=== PATIENT | male | born 1955 ===

== ENCOUNTER 2017-02-25 19:02 | Emergency (ER) | payer MEDICAID ==
[2017-02-25 19:04] VITALS: BMI 31.9
--- NOTE | 2017-02-25 21:20 | C.PDOC ---
History Of Present Illness 61 year old male presents to the ED with complaints of abdominal pain and bloating that has worsened over the past few days. Patient states he was seen here last month for a possible PE and denies vomiting, diarrhea, chest pain, SOB , palpitations, visual changes, or any other complaints at this time. Time Seen by Provider: 02/25/17 21:19 Chief Complaint (Nursing): Dizziness/Lightheaded History Per: Patient History/Exam Limitations: no limitations Onset/Duration Of Symptoms: Days Current Symptoms Are (Timing): Still Present Activity At Onset Of Symptoms: Other Seizure Or Post-ictal Symptoms: None Fall Associated With With Symptoms: No Severity: Moderate Pain Scale Rating Of: 4 Recent travel outside of the [place]: No Additional History Per: Patient - Symptoms Of CVA Recent Aspirin Use: Unknown Current Coumadin Use?: No Recent Head Trauma: No Past Medical History Reviewed: Historical Data, Nursing Documentation, Vital Signs Vital Signs: Last Vital Signs Temp 98.3 F 02/25/17 19:05 Pulse 55 L 02/25/17 23:02 Resp 17 02/25/17 23:02 BP 121/80 02/25/17 23:02 Pulse Ox 99 02/25/17 23:37 - Medical History PMH: Arthritis, Asthma, Deep Vein Thrombosis (Left Leg), Gastritis, HTN, Hypercholesterolemia, Peripheral Edema, Pneumonia, Pulmonary Embolism, Sleep Apnea (USE CPAP) Surgical History: Endoscopy - [facility] Procedures INFLUENZA VACCINATION (12/05/14) OTHER ENDOSCOPY OF SM INTEST (08/06/15) PLICATION OF VENA CAVA (12/05/14) Family History: States: Unknown Family Hx - Social History Hx Tobacco Use: No Hx Alcohol Use: No Hx Substance Use: No - Immunization History Hx Tetanus Toxoid Vaccination: No Hx Influenza Vaccination: No Hx Pneumococcal Vaccination: No Review Of Systems Constitutional: Negative for: Fever, Chills Eyes: Negative for: Vision Change Cardiovascular: Negative for: Chest Pain, Palpitations Respiratory: Negative for: Shortness of Breath Gastrointestinal: Positive for: Abdominal Pain, Other (+Bloating). Negative for : Vomiting, Diarrhea Genitourinary: Negative for: Dysuria, Frequency Musculoskeletal: Negative for: Neck Pain, Back Pain Skin: Negative for: Rash, Lesions, Jaundice Neurological: Negative for: Weakness, Numbness Psych: Positive for: Anxiety Physical Exam - Physical Exam Appears: Non-toxic, Other (+MIld discomfort) Skin: Warm, Dry Head: Atraumatic, Normacephalic Eye(s): bilateral: Normal Inspection Oral Mucosa: Moist Neck: Supple Chest: Symmetrical, No Deformity Cardiovascular: Rhythm Regular, No Murmur Respiratory: No Accessory Muscle Use, No Rales, No Rhonchi, No Wheezing Gastrointestinal/Abdominal: Soft, No Tenderness, Distention, No Guarding, No Rebound, Other (+Tympanic to percussion) Extremity: Normal ROM, Pedal Edema (+Bilateral trace pedal edema), No Calf Tenderness, No Deformity Pulses: Left Dorsalis Pedis: Normal, Right Dorsalis Pedis: Normal Neurological/Psych: Oriented x3, Normal Speech, Normal Cognition ED Course And Treatment - Laboratory Results Result Diagrams: 02/25/17 21:32 02/25/17 21:32 ECG: Interpreted By Me, Viewed By Me ECG Rhythm: Sinus Rhythm (82), Nonspecific Changes O2 Sat by Pulse Oximetry: 99 (Room air) Pulse Ox Interpretation: Normal - Radiology CXR Interpretation: Yes: Other (unchanged from 01/13/17). No: Infiltrates, Fracture, Pnemothorax - Other Rad obstr X-Ray: Interpreted by Me, Viewed By Me Interpretation: lots of stool and gas, no obstr Progress Note: CXR, EKG, Blood work, and Urinalysis ordered and reviewed. Reevaluation Time: 23:53 Reassessment Condition: Improved Medical Decision Making Medical Decision Making: Upon provider reevaluation patient is feeling better, is medically stable, and requires no further treatment in the ED at this time. Patient will be discharged home with Rx for miralax . Counseling was provided and all questions were answered regarding diagnosis and need for follow up with Dr Jessica. There is agreement to discharge plan. Return if symptoms persist or worsen. Disposition Counseled Patient/Family Regarding: Studies Performed, Diagnosis, Need For Followup, Rx Given - Disposition Referrals: Hoa Jessica MD [Staff Provider] - Disposition: HOME/ ROUTINE Disposition Time: 21:20 Condition: FAIR Additional Instructions: Please return if symptoms recur Prescriptions: Polyethylene Glycol 3350 [Miralax] 17 gm PO DAILY #270 ml Instructions: Abdominal Pain (ED), Gas and Bloating (ED), Constipation (DC) - Clinical Impression Clinical Impression: Abdominal pain, Constipation - Scribe Statement The provider has reviewed the documentation as recorded by the Scribe Jourdan Kingsley. Provider Attestation: All medical record entries made by the Scribe were at my direction and personally dictated by me. I have reviewed the chart and agree that the record accurately reflects my personal performance of the history, physical exam, medical decision making, and the department course for this patient. I have also personally directed, reviewed, and agree with the discharge instructions and disposition.
[2017-02-25 21:38] LABS: BASO # 0.1 K/uL (0.0-0.2); BASO % 0.7 % (0.0-2.0); EOS # 1.8 K/uL (0.0-0.7); EOS % 23.7 % (0.0-4.0); HEMATOCRIT 35.7 % (35.0-51.0); LYMPH # 2.4 K/uL (1.0-4.3); LYMPH % 31.3 % (20.0-40.0); MEAN CORPUSCULAR HEMOGLOBIN 29.7 pg (27.0-31.0); MEAN CORPUSCULAR HGB CONC 33.5 g/dL (33.0-37.0); MEAN PLATELET VOLUME 8.6 fL (7.2-11.7); MONO # 0.6 K/uL (0.0-0.8); NRBC % 0.1 % (0.0-2.0); PLATELET COUNT 201 K/uL (130-400); RED CELL DISTRIBUTION WIDTH 13.1 % (11.5-14.5); WHITE BLOOD COUNT 7.7 K/uL (4.8-10.8)
[2017-02-25 21:45] LABS: MEAN CELL VOLUME 88.6 fL (80.0-94.0)
[2017-02-25 21:46] LABS: CHLORIDE 104 mmol/L (98-107); POTASSIUM 4.2 mmol/L (3.6-5.2); SODIUM 141 mmol/L (132-148)
[2017-02-25 21:48] LABS: AST/SGOT 24 U/L (17-59); BILIRUBIN,TOTAL 0.3 mg/dL (0.2-1.3); CARBON DIOXIDE 26 mmol/L (22-30); GFR AFRICAN-AMERICAN > 60
[2017-02-25 21:49] LABS: ALB/GLOB RATIO 1.2 (1.0-2.1); ALKALINE PHOSPHATASE 65 U/L (38-126); ALT/SGPT 29 U/L (21-72); BLOOD UREA NITROGEN 15 mg/dL (9-20); CALCIUM 8.5 mg/dl (8.6-10.4); GLUCOSE,RANDOM 110 mg/dL (75-110); RBC URINE 2 /hpf (0-3); TOTAL PROTEIN 7.2 g/dL (6.3-8.3); URINE BILIRUBIN NEGATIVE (NEGATIVE); URINE BLOOD 1+ (NEGATIVE); URINE COLOR Straw (YELLOW); URINE GLUCOSE (UA) NORMAL (Normal); URINE KETONE NEGATIVE (NEGATIVE); URINE LEUKOCYTE ESTERASE NEG Leu/uL (Negative); URINE PROTEIN NEGATIVE (NEGATIVE); URINE UROBILINOGEN NORMAL mg/dL (0.2-1.0); WBC URINE 1 /hpf (0-5)
[2017-02-25 21:56] LABS: BASOPHIL 1 % (0-2); EOSINOPHIL 30 % (0-4); NEUTROPHIL 31 % (50-75); TOTAL CELLS COUNTED 100
[2017-02-26 00:10] VITALS: BP 124/82; PULSE 61; RESP 19; TEMP 98.4; O2SAT 100
--- NOTE | 2017-02-26 10:04 | RAD ---
PROCEDURE: CHEST RADIOGRAPH, 1 VIEW HISTORY: chest pain COMPARISON: None available. FINDINGS: LUNGS: Mild bibasilar atelectasis right greater than left PLEURA: No pneumothorax or pleural fluid seen. CARDIOVASCULAR: Right aortic arch. Cardiomegaly. OSSEOUS STRUCTURES: No significant abnormalities. VISUALIZED UPPER ABDOMEN: Normal. OTHER FINDINGS: None. IMPRESSION: Mild bibasilar atelectasis right greater than left. Right aortic arch.
--- NOTE | 2017-02-26 11:00 | RAD ---
HISTORY: abd pain COMPARISON: 10/02/2014 FINDINGS: BOWEL: No evidence of acute mechanical bowel obstruction. Large amount of stool seen within the at ascending and proximal transverse colon suggesting mild fecal retention/ constipation. No free air. BONES: Multilevel degenerative spondylosis of the thoracic and lumbar spine OTHER FINDINGS: In situ IVC filter cardiomegaly. Mild left basilar atelectasis. Elevation right hemidiaphragm possibly due to eventration IMPRESSION: Findings suggest constipation. No evidence of obstruction
--- NOTE | 2017-02-28 11:56 | CARD ---
APPROVED REPORT EKG Measurement Heart [id number] <Conclusion> Normal sinus rhythm Normal ECG
== END 2017-02-26 00:18 | disposition home or self-care (01) ==
LOC: C.ER 19:02
DX: K59.00 Constipation, unspecified (principal)
CPT/HCPCS: 71010; 74020; 80053; 81001; 83690; 83880; 84484; 85025; 85610; 85730; 86850; 86900; 93005; 96374; 99285; J2270

== ENCOUNTER 2017-03-18 10:42 | Inpatient (IN) | payer MEDICARE, MEDICAID ==
[2017-03-18 10:58] VITALS: BMI 32.3
--- NOTE | 2017-03-18 11:40 | C.PDOC ---
History Of Present Illness 61 y/o male, with history of DVT and PE, presents to ED with complaint of abdominal pain for 1 week. Denies fever, chills, nausea, vomiting, or diarrhea. Patient also seen by jig maker 1 week ago and was told to stop taking his Coumadin, as he did not need it anymore. Patient reports history of DVT in left leg, but reports increasing swelling and pain in bilateral legs since stopping Coumadin. He notes chest pain only when he coughs. Denies shortness of breath. Time Seen by Provider: 03/18/17 11:14 Chief Complaint (Nursing): Abdominal Pain History Per: Patient History/Exam Limitations: no limitations Onset/Duration Of Symptoms: Days Current Symptoms Are (Timing): Still Present Location Of Pain/Discomfort: RLQ Radiation Of Pain To:: None Associated Symptoms: denies: Fever, Chills, Nausea, Vomiting, Diarrhea Recent travel outside of the [place]: No Past Medical History Reviewed: Historical Data, Nursing Documentation, Vital Signs Vital Signs: Last Vital Signs Temp 97.4 F L 03/18/17 10:57 Pulse 81 03/18/17 10:57 Resp 18 03/18/17 10:57 BP 133/86 03/18/17 10:57 Pulse Ox 98 03/18/17 19:16 - Medical History PMH: Arthritis, Asthma, Deep Vein Thrombosis (Left Leg), Gastritis, HTN, Hypercholesterolemia, Peripheral Edema, Pneumonia, Pulmonary Embolism, Sleep Apnea (USE CPAP) Surgical History: Endoscopy - [facility] Procedures INFLUENZA VACCINATION (12/05/14) OTHER ENDOSCOPY OF SM INTEST (08/06/15) PLICATION OF VENA CAVA (12/05/14) Family History: States: Unknown Family Hx - Social History Hx Tobacco Use: No Hx Alcohol Use: No Hx Substance Use: No - Immunization History Hx Tetanus Toxoid Vaccination: No Hx Influenza Vaccination: No Hx Pneumococcal Vaccination: No Review Of Systems Except As Marked, All Systems Reviewed And Found Negative. Constitutional: Negative for: Fever, Chills Cardiovascular: Negative for: Chest Pain Respiratory: Positive for: Cough. Negative for: Shortness of Breath, Wheezing Gastrointestinal: Positive for: Abdominal Pain. Negative for: Nausea, Vomiting , Diarrhea Musculoskeletal: Positive for: Leg Pain (bilateral, with increased swelling) Skin: Negative for: Rash Neurological: Negative for: Weakness, Numbness, Headache Physical Exam - Physical Exam Appears: Non-toxic, No Acute Distress Skin: Warm, Dry Head: Atraumatic, Normacephalic Chest: Symmetrical Cardiovascular: Rhythm Regular Respiratory: Decreased Breath Sounds (slight, right base), No Rales, No Rhonchi , No Wheezing Gastrointestinal/Abdominal: Bowel Sounds (normal), Soft, Tenderness (diffuse, worse in RLQ, with (+) voluntary guarding), No Guarding Back: Normal Inspection Extremity: Normal ROM, Capillary Refill (< 2 sec. ) Neurological/Psych: Oriented x3, Normal Speech, Normal Cognition ED Course And Treatment - Laboratory Results Result Diagrams: 03/18/17 12:28 03/18/17 12:28 ECG: Interpreted By Me, Viewed By Me ECG Rhythm: Sinus Rhythm ECG Interpretation: Normal O2 Sat by Pulse Oximetry: 98 (RA) Pulse Ox Interpretation: Normal - CT Scan/US CT Abdomen/Pelvis Other Rad Studies (CT/US): Read By Radiologist, Radiology Report Reviewed CT/US Interpretation: FINDINGS: LOWER THORAX: Unremarkable. LIVER: Unremarkable. No gross lesion or ductal dilatation. GALLBLADDER AND BILE DUCTS : Unremarkable. PANCREAS: Unremarkable. No gross lesion or ductal dilatation. SPLEEN: Unremarkable. ADRENALS: Unremarkable. No mass. KIDNEYS AND URETERS: Unremarkable. No hydronephrosis. No solid mass. VASCULATURE: IVC filter seen in place. The abdominal aorta is normal in caliber and shape. BOWEL: Unremarkable. No obstruction. No gross mural thickening. Few scattered diverticulosis are seen without evidence of diverticulitis. APPENDIX: Normal appendix. PERITONEUM: Unremarkable. No free fluid. No free air. LYMPH NODES: Unremarkable. No enlarged lymph nodes. BLADDER: The urinary bladder is mildly to moderately distended. REPRODUCTIVE: Moderately enlarged prostate. BONES: No acute fracture. OTHER FINDINGS: None. IMPRESSION: No evidence of acute pathology in the abdomen and pelvis. No evidence of significant interval change since the previous exam. Mildly to moderately distended urinary bladder. Moderately enlarged prostate. CT Angio Chest Other Rad Studies (CT/US): Read By Radiologist, Radiology Report Reviewed CT/US Interpretation: FINDINGS: PULMONARY ARTERIES: Re- demonstration of small eccentric filling defects in the bilateral lower lobe pulmonary arteries not significantly changed since the previous exam. 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 No evidence of central pulmonary embolus. The main pulmonary artery is mildly enlarged. AORTA: 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 No significant interval change in the thoracic aorta since the previous exam. LUNGS: No significant interval change in the lungs noted since the previous exam. No evidence of pneumonia or suspicious mass. PLEURAL SPACES: Unremarkable. No effusion or pneuomothorax. HEART: The heart is mildly enlarged. LYMPH NODES: No lymphadenopathy. BONES, CHEST WALL: Unremarkable. No fracture or destructive lesion. OTHER FINDINGS: Unremarkable. IMPRESSION: Re- demonstration of tiny eccentric filling defects at the pulmonary arteries of the lower lobes suggestive of chronic/organized pulmonary emboli. . No evidence of acute pulmonary embolus. No evidence of significant interval change since the previous exam. Re- demonstration of right-sided aortic arch and mild aneurysmal changes in the thoracic aorta. Mild cardiomegaly. Mildly enlarged main pulmonary artery. Medical Decision Making Medical Decision Making: Plan: * CT scan chest and abdomen, evaluate for DVT * Reassess Progress: diuscussed with Dr Ruelas, recommends pt be put back on blood thinners. pt now complaining of chest pain, ekg done and trop prdered. Disposition Discussed With .: Emily Dickson Doctor Will See Patient In The: Hospital - Disposition Disposition: HOSPITALIZED Disposition Time: 19:16 Condition: STABLE - Clinical Impression Clinical Impression: Pulmonary embolism, Chest pain - PA / STONECUTTER ASSISTANT / Resident Statement MD/DO has reviewed & agrees with the documentation as recorded. - Scribe Statement The provider has reviewed the documentation as recorded by the Albino Augustine Provider Scribe Attestation: All medical record entries made by the Albino were at my direction and personally dictated by me. I have reviewed the chart and agree that the record accurately reflects my personal performance of the history, physical exam, medical decision making, and the department course for this patient. I have also personally directed, reviewed, and agree with the discharge instructions and disposition.
[2017-03-18] MEDS ORDERED: Iohexol 240 (50 ml) PO STA (12:15)
[2017-03-18] MEDS ORDERED: Sodium Chloride 0.9% 1,000 ML IV ONE (12:15)
[2017-03-18] MEDS ORDERED: Iohexol 240 (50 ml) ONE (12:31)
[2017-03-18] MEDS ORDERED: Sodium Chloride 0.9% 1,000 ML ONE (12:31)
[2017-03-18 12:44] LABS: BASO % 0.6 % (0.0-2.0); EOS # 0.2 K/uL (0.0-0.7); EOS % 4.8 % (0.0-4.0); HEMATOCRIT 37.3 % (35.0-51.0); LYMPH # 0.6 K/uL (1.0-4.3); LYMPH % 12.2 % (20.0-40.0); MEAN CELL VOLUME 87.8 fL (80.0-94.0); MEAN CORPUSCULAR HEMOGLOBIN 29.5 pg (27.0-31.0); MEAN CORPUSCULAR HGB CONC 33.6 g/dL (33.0-37.0); MEAN PLATELET VOLUME 8.2 fL (7.2-11.7); MONO # 0.1 K/uL (0.0-0.8); MONO % 1.8 % (0.0-10.0); NRBC % 0.1 % (0.0-2.0); WHITE BLOOD COUNT 4.6 K/uL (4.8-10.8)
[2017-03-18 12:52] LABS: CHLORIDE 101 mmol/L (98-107); SODIUM 136 mmol/L (132-148)
[2017-03-18 12:53] LABS: POTASSIUM 4.5 mmol/L (3.6-5.2)
[2017-03-18 12:55] LABS: ALB/GLOB RATIO 1.3 (1.0-2.1); ALKALINE PHOSPHATASE 78 U/L (38-126); ALT/SGPT 38 U/L (21-72); AST/SGOT 24 U/L (17-59); BILIRUBIN,TOTAL 0.2 mg/dL (0.2-1.3); BLOOD UREA NITROGEN 16 mg/dL (9-20); CARBON DIOXIDE 28 mmol/L (22-30); GFR AFRICAN-AMERICAN > 60; GLUCOSE,RANDOM 96 mg/dL (75-110); TOTAL PROTEIN 8.2 g/dL (6.3-8.3)
[2017-03-18 12:56] LABS: CALCIUM 9.2 mg/dl (8.6-10.4)
[2017-03-18 13:00] LABS: RBC URINE < 1 /hpf (0-3); URINE BILIRUBIN NEGATIVE (NEGATIVE); URINE BLOOD NEGATIVE (NEGATIVE); URINE COLOR Straw (YELLOW); URINE GLUCOSE (UA) NORMAL (Normal); URINE KETONE NEGATIVE (NEGATIVE); URINE LEUKOCYTE ESTERASE NEG Leu/uL (Negative); URINE PROTEIN NEGATIVE (NEGATIVE); URINE UROBILINOGEN NORMAL mg/dL (0.2-1.0); WBC URINE < 1 /hpf (0-5)
[2017-03-18] MEDS ORDERED: Iodixanol 320 mg/ml 150 ml Bottle IV ONE (13:30)
--- NOTE | 2017-03-18 14:51 | CT ---
PROCEDURE: CT Chest with contrast (Pulmonary Angiogram) HISTORY: leg pain, sob, hx dvt and pe COMPARISON: Comparison is made to the previous study dated 01/13/2017. TECHNIQUE: Axial computed tomography images were obtained of the chest in the pulmonary arterial phase of enhancement. Coronal and sagittal reformatted images were created and reviewed. Intravenous contrast dose: 100 mL of Visipaque Radiation dose: Total exam DLP = 523.9 mGy-cm. This CT exam was performed using one or more of the following dose reduction techniques: Automated exposure control, adjustment of the mA and/or kV according to patient size, and/or use of iterative reconstruction technique. FINDINGS: PULMONARY ARTERIES: Re- demonstration of small eccentric filling defects in the bilateral lower lobe pulmonary arteries not significantly changed since the previous exam. 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 No evidence of central pulmonary embolus. The main pulmonary artery is mildly enlarged. AORTA: 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 No significant interval change in the thoracic aorta since the previous exam. LUNGS: No significant interval change in the lungs noted since the previous exam. No evidence of pneumonia or suspicious mass. PLEURAL SPACES: Unremarkable. No effusion or pneuomothorax. HEART: The heart is mildly enlarged. LYMPH NODES: No lymphadenopathy. BONES, CHEST WALL: Unremarkable. No fracture or destructive lesion OTHER FINDINGS: Unremarkable. IMPRESSION: Re- demonstration of tiny eccentric filling defects at the pulmonary arteries of the lower lobes suggestive of chronic/organized pulmonary emboli. . No evidence of acute pulmonary embolus. No evidence of significant interval change since the previous exam. Re- demonstration of right-sided aortic arch and mild aneurysmal changes in the thoracic aorta. Mild cardiomegaly. Mildly enlarged main pulmonary artery.
--- NOTE | 2017-03-18 15:05 | CT ---
PROCEDURE: CT Abdomen and Pelvis with contrast HISTORY: abd pain COMPARISON: Comparison is made to the previous study dated 01/14/2017. TECHNIQUE: Contrast dose: 100 mL Visipaque intravenously. The patient had CTA of the chest was obtained concurrently and reported separately using the same dose of IV contrast. Radiation dose: Total exam DLP = 887.43 mGy-cm. This CT exam was performed using one or more of the following dose reduction techniques: Automated exposure control, adjustment of the mA and/or kV according to patient size, and/or use of iterative reconstruction technique. FINDINGS: LOWER THORAX: Unremarkable. LIVER: Unremarkable. No gross lesion or ductal dilatation. GALLBLADDER AND BILE DUCTS: Unremarkable. PANCREAS: Unremarkable. No gross lesion or ductal dilatation. SPLEEN: Unremarkable. ADRENALS: Unremarkable. No mass. KIDNEYS AND URETERS: Unremarkable. No hydronephrosis. No solid mass. VASCULATURE: IVC filter seen in place. The abdominal aorta is normal in caliber and shape. BOWEL: Unremarkable. No obstruction. No gross mural thickening. Few scattered diverticulosis are seen without evidence of diverticulitis. APPENDIX: Normal appendix. PERITONEUM: Unremarkable. No free fluid. No free air. LYMPH NODES: Unremarkable. No enlarged lymph nodes. BLADDER: The urinary bladder is mildly to moderately distended. REPRODUCTIVE: Moderately enlarged prostate. BONES: No acute fracture. OTHER FINDINGS: None. IMPRESSION: No evidence of acute pathology in the abdomen and pelvis. No evidence of significant interval change since the previous exam. Mildly to moderately distended urinary bladder. Moderately enlarged prostate.
[2017-03-18] MEDS ORDERED: Enoxaparin 80 mg Syringe SC STA (18:06)
[2017-03-18] MEDS ORDERED: Enoxaparin 30 mg Syringe ONE (18:50)
[2017-03-18] MEDS ORDERED: Enoxaparin 60 mg Syringe ONE (18:51)
[2017-03-18] MEDS ORDERED: Heparin25000 units/250ml 1/2NS 25,000 UNITS/250 ML BAG IV ONE (19:09)
[2017-03-18 19:29] LABS: INR 1.1
[2017-03-18] MEDS ORDERED: Albuterol-Ipratrop 3 mg / 0.5 (3 ml) UD INH PRN (22:15)
--- NOTE | 2017-03-18 22:19 | CP.PCM.HP ---
History of Present Illness - History of Present Illness History of Present Illness: 61-year-old male patient with past medical history of DVT, PE, hypertension, hypercholesterolemia, peripheral edema, pneumonia, sleep apnea, presented to the ED with complaint of abdominal pain for 1 week. Patient also seen by furniture stainer for pneumococcal and was told to stop taking his Coumadin, as he did not need it anymore. Patient reports history of DVT in the left leg, but reports increasing swelling and pain in bilateral legs since stopping Coumadin. Patient notes chest pain only when he coughs. Denies shortness of breath, fever, chills, nausea, vomiting, diarrhea. Present on Admission - Present on Admission Any Indicators Present on Admission: No Past Patient History - Infectious Disease Hx of Infectious Diseases: None - Past Medical History & Family History Past Medical History?: Yes - Past Social History Smoking Status: Never Smoked - CARDIAC Hx Hypercholesterolemia: Yes Hx Hypertension: Yes Hx Peripheral Edema: Yes - PULMONARY Hx Asthma: Yes Hx Pneumonia: Yes Hx Pulmonary Embolism: Yes Hx Sleep Apnea: Yes (USE CPAP) - NEUROLOGICAL Hx Neurological Disorder: No - HEENT Hx HEENT Problems: No - RENAL Hx Chronic Kidney Disease: No - ENDOCRINE/METABOLIC Hx Endocrine Disorders: No - HEMATOLOGICAL/ONCOLOGICAL Hx Blood Disorders: Yes Other/Comment: 'blood clots in leg and lungs' - INTEGUMENTARY Hx Dermatological Problems: No - MUSCULOSKELETAL/RHEUMATOLOGICAL Hx Arthritis: Yes - GASTROINTESTINAL Hx Gastritis: Yes - GENITOURINARY/GYNECOLOGICAL Hx Genitourinary Disorders: No - PSYCHIATRIC Hx Substance Use: No - SURGICAL HISTORY Hx Surgeries: Yes - ANESTHESIA Hx Anesthesia: Yes Hx Anesthesia Reactions: No Hx Malignant Hyperthermia: No Meds Allergies/Adverse Reactions: Allergies Allergy/AdvReac Type Severity Reaction Status Date / Time Penicillins Allergy RASH Verified 03/18/17 10:56 Results - Vital Signs Recent Vital Signs: Last Vital Signs Temp 97.4 F L 03/18/17 10:57 Pulse 85 03/18/17 20:35 Resp 18 03/18/17 20:35 BP 131/93 H 03/18/17 20:35 Pulse Ox 98 03/18/17 20:35 - Labs Result Diagrams: 03/21/17 10:56 03/21/17 10:56 Labs: Laboratory Results - last 24 hr 03/18/17 03/18/17 19:17 19:17 PT 12.6 H INR 1.1 APTT 26 Troponin I < 0.0120 Assessment & Plan (1) Abdominal pain Status: Acute (2) Asthma Status: Acute (3) Asthma exacerbation Status: Acute (4) Bronchitis Status: Acute (5) Chest pain Status: Acute (6) Chest pain Status: Acute (7) Constipation Status: Acute (8) Dyspnea Status: Acute (9) H/O gastritis Status: Acute (10) History of DVT of lower extremity Status: Acute (11) History of pulmonary embolism Status: Acute (12) Leukocytosis Status: Acute (13) Pneumonia Status: Acute (14) Prophylactic measure Status: Acute (15) Pulmonary embolism Status: Acute (16) Reactive airway disease with wheezing Status: Acute (17) S/P IVC filter Status: Acute (18) SOB (shortness of breath) Status: Acute (19) Transaminitis Status: Acute (20) Transient visual loss of both eyes Status: Acute (21) Aortic aneurysm Status: Chronic (22) DVT (deep venous thrombosis) Status: Chronic (23) GERD (gastroesophageal reflux disease) Status: Chronic (24) Gastritis Status: Chronic (25) HTN (hypertension) Status: Chronic (26) History of DVT (deep vein thrombosis) Status: Chronic (27) Pulmonary embolism Status: Chronic (28) IVC thrombosis Status: Suspected - Assessment and Plan (Free Text) Plan: duoneb coumadin heparin pulalton protnix adn home med [id number]
[2017-03-19] MEDS: Pantoprazole 40 mg EC Tab PO SCH (09:45)
[2017-03-19] MEDS ORDERED: Albuterol-Ipratrop 20 mcg/actuation (4 g) IH SCH ×2 (10:00→20:00)
[2017-03-19] MEDS ORDERED: Albuterol HFA 90 mcg/actuation (8 g) IH SCH ×3 (10:00→20:00)
[2017-03-19] MEDS: POLYETHYLENE GLYCOL 3350 17 GM/Dose PACKET PO SCH (10:54)
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
--- NOTE | 2017-03-19 14:46 | CP.PCM.PN ---
Subjective - Date & Time of Evaluation Date of Evaluation: 03/19/17 Time of Evaluation: 13:40 - Subjective Subjective: clinically same Objective - Vital Signs/Intake and Output Vital Signs (last 24 hours): Temp Pulse Resp BP Pulse Ox 98.0 F 72 18 119/79 97 03/19/17 07:23 03/19/17 07:30 03/19/17 07:23 03/19/17 07:23 03/19/17 07:23 Intake and Output: 03/19/17 03/19/17 06:59 18:59 Intake Total 225.6 Balance 225.6 - Medications Medications: Current Medications Albuterol (Ventolin Hfa 90 Mcg/Actuation (8 G)) 2 puff IH BID [facility] Last Admin: 03/19/17 11:16 Dose: 2 puff Albuterol/Ipratropium (Combivent Respimat) 1 puff IH QID [facility] Albuterol/Ipratropium (Duoneb 3 Mg/0.5 Mg (3 Ml) Ud) 3 ml INH RQ6 PRN PRN Reason: Shortness of Breath Heparin Sodium (Porcine) (Heparin) 5,000 units SC Q8 [facility] Montelukast Sodium (Singulair) 10 mg PO DAILY [facility] Last Admin: 03/19/17 10:58 Dose: 10 mg Pantoprazole Sodium (Protonix Ec Tab) 40 mg PO DAILY [facility] Last Admin: 03/19/17 09:45 Dose: 40 mg Polyethylene Glycol (Miralax) 17 gm PO DAILY [facility] Last Admin: 03/19/17 10:54 Dose: 17 gm - Labs Labs: PT 12.6 SECONDS (9.7-12.2) H 03/18/17 19:17 INR 1.1 03/18/17 19:17 APTT 26 SECONDS (21-34) 03/18/17 19:17 - Constitutional Appears: Well - Head Exam Head Exam: ATRAUMATIC, NORMAL INSPECTION, NORMOCEPHALIC - Eye Exam Eye Exam: EOMI, Normal appearance, PERRL Pupil Exam: NORMAL ACCOMODATION, PERRL - ENT Exam ENT Exam: Mucous Membranes Moist, Normal Exam - Neck Exam Neck Exam: Full ROM, Normal Inspection. absent: Lymphadenopathy - Respiratory Exam Respiratory Exam: Decreased Breath Sounds - Cardiovascular Exam Cardiovascular Exam: REGULAR RHYTHM, +S1, +S2 - GI/Abdominal Exam GI & Abdominal Exam: Soft, Diminished Bowel Sounds - Rectal Exam Rectal Exam: Deferred Assessment and Plan (1) Abdominal pain Status: Acute (2) Asthma Status: Acute (3) Asthma exacerbation Status: Acute (4) Bronchitis Status: Acute (5) Chest pain Status: Acute (6) Chest pain Status: Acute (7) Constipation Status: Acute (8) Dyspnea Status: Acute (9) H/O gastritis Status: Acute (10) History of DVT of lower extremity Status: Acute (11) History of pulmonary embolism Status: Acute (12) Leukocytosis Status: Acute (13) Pneumonia Status: Acute (14) Prophylactic measure Status: Acute (15) Pulmonary embolism Status: Acute (16) Reactive airway disease with wheezing Status: Acute (17) S/P IVC filter Status: Acute (18) SOB (shortness of breath) Status: Acute (19) Transaminitis Status: Acute (20) Transient visual loss of both eyes Status: Acute (21) Aortic aneurysm Status: Chronic (22) DVT (deep venous thrombosis) Status: Chronic (23) GERD (gastroesophageal reflux disease) Status: Chronic (24) Gastritis Status: Chronic (25) HTN (hypertension) Status: Chronic (26) History of DVT (deep vein thrombosis) Status: Chronic (27) Pulmonary embolism Status: Chronic (28) IVC thrombosis Status: Suspected - Assessment and Plan (Free Text) Plan: Consult 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
[2017-03-19 16:03] VITALS: RESP 20
--- NOTE | 2017-03-19 17:50 | CP.PCM.CON ---
History of Present Illness - History of Present Illness History of Present Illness: 61 y/o male, with history of DVT and PE, presents to ED with complaint of abdominal pain for 1 week. Denies fever, chills, nausea, vomiting, or diarrhea. Patient also seen by director [employer] 1 week ago and was told to stop taking his Coumadin, as he did not need it anymore. Patient reports history of DVT in left leg, but reports increasing swelling and pain in bilateral legs since stopping Coumadin. He notes chest pain only when he coughs. Denies shortness of breath. Past Patient History - Infectious Disease Hx of Infectious Diseases: None - Past Medical History & Family History Past Medical History?: Yes - Past Social History Smoking Status: Never Smoked - CARDIAC Hx Cardiac Disorders: Yes Hx Angina: Yes Hx Atrial Fibrillation: No Hx Cardia Arrhythmia: No Hx Circulatory Problems: No Hx Congestive Heart Failure: No Hx Heart Attack: No Hx Heart Murmur: No Hx Heart Transplant: No Hx Hypercholesterolemia: Yes Hx Hypertension: Yes Hx Hypotension: No Hx Internal Defibrillator: No Hx Mitral Valve Prolapse: No Hx Pacemaker: No Hx Peripheral Edema: Yes Hx Peripheral Vascular Disease: No - PULMONARY Hx Respiratory Disorders: Yes Hx Asthma: Yes Hx Bronchitis: Yes Hx Chronic Obstructive Pulmonary Disease (COPD): No Hx Emphysema: No Hx Lung Cancer: No Hx Pneumonia: Yes Hx Pulmonary Edema: No Hx Pulmonary Embolism: Yes Hx Respiratory Aspiration: No Hx Respiratory Tract Infection: No Hx Sleep Apnea: Yes (USE CPAP) Hx Tuberculosis: No - NEUROLOGICAL Hx Neurological Disorder: No - HEENT Hx HEENT Problems: No - RENAL Hx Chronic Kidney Disease: No - ENDOCRINE/METABOLIC Hx Endocrine Disorders: No - HEMATOLOGICAL/ONCOLOGICAL Hx Blood Disorders: No - INTEGUMENTARY Hx Dermatological Problems: No - MUSCULOSKELETAL/RHEUMATOLOGICAL Hx Falls: No - GASTROINTESTINAL Hx Gastrointestinal Disorders: Yes Hx Bowel Surgery: No Hx Clostridium Difficile: No Hx Colitis: No Hx Colostomy: No Hx Constipation: No Hx Crohn's Disease: No Hx Diarrhea: No Hx Diverticulitis: No Hx Esophageal Varices: No Hx Fatty Liver Disease: No Hx Gall Bladder Disease: No Hx Gastritis: Yes Hx Gastroesophageal Reflux: Yes Hx Hemorrhoids: No Hx Ileostomy: No Hx Irritable Bowel: No Hx Liver Failure: No Hx Nausea: No Hx Pancreatitis: No HX Swallowing Problems: No Hx Ulcer: No Hx Vomiting: No - GENITOURINARY/GYNECOLOGICAL Hx Genitourinary Disorders: No - PSYCHIATRIC Hx Substance Use: No - SURGICAL HISTORY Hx Surgeries: Yes Hx Abdominal Aortic Aneurysm Repair: No Hx Amputation: No Hx Angiogram: No Hx Angioplasty: No Hx Appendectomy: No Hx Arteriovenous Shunt: No Hx Arthroscopy: No Hx Bile Duct Stent: No Hx Breast Biopsy: No Hx Cataract Extraction: No Hx Cardiac Catheterization: No Hx Carotid Endarterectomy: No Hx Section: No Hx Cholecystectomy: No Hx Coronary Artery Bypass Graft: No Hx Coronary Stent: No Hx Dilation and Curettage: No Hx Eye Surgery: No Hx Femoral-Popliteal Bypass Graft: No Hx Gastric Bypass Surgery: No Hx Herniorrhaphy: No Hx Hysterectomy: No Hx Joint Replacement: No Hx Kidney Transplant: No Hx Liver Transplant: No Hx Mastectomy: No Hx Musculoskeletal Surgery: No Hx Open Heart Surgery: No Hx Open Reduction Internal Fixation: No Hx Orthopedic Surgery: No Hx Parathyroidectomy: No Hx Penile Implant: No Hx Pulmonary Surgery: No Hx Splenectomy: No Hx Thyroidectomy: No Hx Tonsillectomy: No Hx Tubal Ligation: No Hx Valve Replacement: No Hx Vascular Surgery: No Hx Vascular Access Device: No Other/Comment: endoscopy, IVC filter 01/15/17 - ANESTHESIA Hx Anesthesia: Yes Hx Anesthesia Reactions: No Hx Malignant Hyperthermia: No Has any member of the family had a problem w/ anesthesia?: No Meds Allergies/Adverse Reactions: Allergies Allergy/AdvReac Type Severity Reaction Status Date / Time Penicillins Allergy RASH Verified 03/18/17 10:56 - Medications Medications: Current Medications Albuterol (Ventolin Hfa 90 Mcg/Actuation (8 G)) 2 puff IH [facility] Albuterol/Ipratropium (Duoneb 3 Mg/0.5 Mg (3 Ml) Ud) 3 ml INH RQ6 PRN PRN Reason: Shortness of Breath Albuterol/Ipratropium (Combivent Respimat) 1 puff IH RQID [facility] Heparin Sodium (Porcine) (Heparin) 5,000 units SC Q8 [facility] Montelukast Sodium (Singulair) 10 mg PO DAILY [facility] Last Admin: 03/19/17 10:58 Dose: 10 mg Pantoprazole Sodium (Protonix Ec Tab) 40 mg PO DAILY [facility] Last Admin: 03/19/17 09:45 Dose: 40 mg Polyethylene Glycol (Miralax) 17 gm PO DAILY [facility] Last Admin: 03/19/17 10:54 Dose: 17 gm Physical Exam - Head Exam Head Exam: ATRAUMATIC, NORMOCEPHALIC - Eye Exam Eye Exam: Normal appearance - ENT Exam ENT Exam: Mucous Membranes Moist - Neck Exam Neck exam: Positive for: Normal Inspection - Respiratory Exam Respiratory Exam: Clear to Auscultation Bilateral - Cardiovascular Exam Cardiovascular Exam: REGULAR RHYTHM - GI/Abdominal Exam GI & Abdominal Exam: Normal Bowel Sounds, Soft Results - Vital Signs Recent Vital Signs: Last Vital Signs Temp 97.4 F L 03/19/17 16:02 Pulse 72 03/19/17 16:02 Resp 20 03/19/17 16:02 BP 124/78 03/19/17 16:02 Pulse Ox 99 03/19/17 16:02 - Labs Result Diagrams: 03/21/17 10:56 03/21/17 10:56 Assessment & Plan (1) Pulmonary embolism Status: Acute (2) Asthma exacerbation Status: Acute
--- NOTE | 2017-03-20 09:22 | VASCLAB ---
PROCEDURE: Lower Extremity Venous Duplex Exam. HISTORY: hx dvt, stopped coumadin. worse swelling PRIORS: None. TECHNIQUE: Bilateral common femoral, femoral, popliteal and posterior tibial, peroneal and great saphenous veins were evaluated. Flow was assessed with color Doppler, compressibility, assessment of phasic flow and augmentation response. Report prepared by Orlando Garcia, SHANE, RVT FINDINGS: RIGHT: 1. Common Femoral Vein: 1.1. Compressibility - Fully compressible: Thrombus - None : Flow - Phasic: Augmentation -Normal: Reflux - None. 2. Femoral Vein: 2.1. Compressibility - Fully compressible: Thrombus - None : Flow - Phasic: Augmentation -Normal: Reflux - None. 3. Popliteal Vein: 3.1. Compressibility - Fully compressible: Thrombus - None : Flow - Phasic: Augmentation -Normal: Reflux - None. 4. Posterior Tibial Vein: 4.1. Compressibility - Fully compressible: Thrombus - None: Flow - Phasic: Augmentation -Normal: Reflux - None. 5. Peroneal Vein: 5.1. Compressibility - Fully compressible: Thrombus - None: Flow - Phasic: Augmentation -Normal: Reflux - None. 6. Great Saphenous Vein: 6.1. Compressibility - Fully compressible: Thrombus - None: Flow - Phasic: Augmentation - Normal: Reflux - None. LEFT: 1. Common Femoral Vein: 1.1. Compressibility - Fully compressible: Thrombus - None: Flow - Phasic: Augmentation -Normal: Reflux - None. 2. Femoral Vein: 2.1. Compressibility - Fully compressible: Thrombus - None: Flow - Phasic: Augmentation -Normal: Reflux - None. 3. Popliteal Vein: 3.1. Compressibility - Fully compressible: Thrombus - None : Flow - Phasic: Augmentation -Normal: Reflux - None. 4. Posterior Tibial Vein: 4.1. Compressibility - Fully compressible: Thrombus - None: Flow - Phasic: Augmentation -Normal: Reflux - None. 5. Peroneal Vein: 5.1. Compressibility - Fully compressible: Thrombus - None: Flow - Phasic: Augmentation -Normal: Reflux - None. 6. Great Saphenous Vein: 6.1. Compressibility - Fully compressible: Thrombus - None: Flow - Phasic: Augmentation - Normal: Reflux - Severe. OTHER FINDINGS: Right: None significant. Left: Severe valvular incompetence of the left greater saphenous vein. IMPRESSION: Right: No evidence of deep or superficial vein thrombosis of the right lower extremity. Normal valve function noted of the right side. Left: No evidence of deep or superficial vein thrombosis of the left lower extremity.
[2017-03-20] MEDS: Pantoprazole 40 mg EC Tab PO SCH (10:35)
[2017-03-20] MEDS: POLYETHYLENE GLYCOL 3350 17 GM/Dose PACKET PO SCH (10:35)
--- NOTE | 2017-03-20 16:26 | CP.PCM.PN ---
Subjective - Date & Time of Evaluation Date of Evaluation: 03/20/17 Time of Evaluation: 12:35 - Subjective Subjective: clinically same Objective - Vital Signs/Intake and Output Vital Signs (last 24 hours): Temp Pulse Resp BP Pulse Ox 98.2 F 74 20 117/76 96 03/19/17 23:10 03/20/17 03:30 03/19/17 23:10 03/19/17 23:10 03/19/17 23:10 - Medications Medications: Current Medications Albuterol/Ipratropium (Duoneb 3 Mg/0.5 Mg (3 Ml) Ud) 3 ml INH RQ6 PRN PRN Reason: Shortness of Breath Albuterol/Ipratropium (Combivent Respimat) 1 puff IH RQID [facility] Heparin Sodium (Porcine) (Heparin) 5,000 units SC Q8 [facility] Last Admin: 03/20/17 05:49 Dose: 5,000 units Montelukast Sodium (Singulair) 10 mg PO DAILY [facility] Last Admin: 03/20/17 10:35 Dose: 10 mg Pantoprazole Sodium (Protonix Ec Tab) 40 mg PO DAILY [facility] Last Admin: 03/20/17 10:35 Dose: 40 mg Polyethylene Glycol (Miralax) 17 gm PO DAILY [facility] Last Admin: 03/20/17 10:35 Dose: 17 gm - Labs Labs: PT 12.6 SECONDS (9.7-12.2) H 03/18/17 19:17 INR 1.1 03/18/17 19:17 APTT 26 SECONDS (21-34) 03/18/17 19:17 - Constitutional Appears: Well - Head Exam Head Exam: ATRAUMATIC, NORMAL INSPECTION, NORMOCEPHALIC - Eye Exam Eye Exam: EOMI, Normal appearance, PERRL Pupil Exam: NORMAL ACCOMODATION, PERRL - ENT Exam ENT Exam: Mucous Membranes Moist, Normal Exam - Neck Exam Neck Exam: Full ROM, Normal Inspection. absent: Lymphadenopathy - Respiratory Exam Respiratory Exam: Clear to Ausculation Bilateral, NORMAL BREATHING PATTERN - Cardiovascular Exam Cardiovascular Exam: REGULAR RHYTHM, +S1, +S2. absent: Murmur - GI/Abdominal Exam GI & Abdominal Exam: Soft, Normal Bowel Sounds. 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
[2017-03-21 07:52] VITALS: TEMP 97.6; O2SAT 97
[2017-03-21] MEDS: Pantoprazole 40 mg EC Tab PO SCH (09:40)
[2017-03-21] MEDS: POLYETHYLENE GLYCOL 3350 17 GM/Dose PACKET PO SCH (09:40)
[2017-03-21 11:12] LABS: BASO # 0.1 K/uL (0.0-0.2); BASO % 0.9 % (0.0-2.0); EOS # 2.2 K/uL (0.0-0.7); EOS % 23.6 % (0.0-4.0); HEMATOCRIT 39.8 % (35.0-51.0); LYMPH # 2.5 K/uL (1.0-4.3); LYMPH % 26.5 % (20.0-40.0); MEAN CELL VOLUME 88.2 fL (80.0-94.0); MEAN CORPUSCULAR HEMOGLOBIN 29.6 pg (27.0-31.0); MEAN CORPUSCULAR HGB CONC 33.6 g/dL (33.0-37.0); MEAN PLATELET VOLUME 8.5 fL (7.2-11.7); MONO # 0.7 K/uL (0.0-0.8); MONO % 7.1 % (0.0-10.0); PLATELET COUNT 199 K/uL (130-400); RED CELL DISTRIBUTION WIDTH 13.2 % (11.5-14.5)
[2017-03-21 11:22] LABS: WHITE BLOOD COUNT 9.5 K/uL (4.8-10.8)
[2017-03-21 11:30] LABS: CHLORIDE 97 mmol/L (98-107)
[2017-03-21 11:31] LABS: SODIUM 134 mmol/L (132-148)
[2017-03-21 11:32] LABS: POTASSIUM 4.2 mmol/L (3.6-5.2)
[2017-03-21 11:34] LABS: ALB/GLOB RATIO 1.1 (1.0-2.1); ALKALINE PHOSPHATASE 67 U/L (38-126); ALT/SGPT 33 U/L (21-72); AST/SGOT 28 U/L (17-59); BILIRUBIN,TOTAL 0.7 mg/dL (0.2-1.3); BLOOD UREA NITROGEN 17 mg/dL (9-20); CARBON DIOXIDE 28 mmol/L (22-30); GFR AFRICAN-AMERICAN > 60; GLUCOSE,RANDOM 98 mg/dL (75-110); TOTAL PROTEIN 7.8 g/dL (6.3-8.3)
[2017-03-21 11:35] LABS: CALCIUM 8.9 mg/dl (8.6-10.4)
[2017-03-21 12:02] LABS: EOSINOPHIL 32 % (0-4); NEUTROPHIL 37 % (50-75); TOTAL CELLS COUNTED 100
--- NOTE | 2017-03-21 12:14 | CP.PCM.PN ---
Subjective - Date & Time of Evaluation Date of Evaluation: 03/21/17 Time of Evaluation: 12:09 - Subjective Subjective: 61 Y/O MALE SEEN AND EXAMINED BY DR Lara HUERTA, PT CLEARED FOR D/C HOME TODAY BY DR HUERTA, DR CHUNG AND DR CORDOVA, CT CHEST- NO ACUTE PE, DOPPLER- NEGATIVE, NO ANTICOGULANT PER DR CORDOVA, PT DENIES ANY ABDOMINAL PAIN, CP, SOB, PALPITATIONS, RESP EASY AND UNLABORED. CTA B/L, PT EDUCATED TO F/U W/CLINIC, CONTINUE HOME MEDS, RETURN TO ED IF ANY WORSENING S/S, AGREE, VERBALIZE UNDERSTANDING. Objective - Vital Signs/Intake and Output Vital Signs (last 24 hours): Temp Pulse Resp BP Pulse Ox 97.6 F 70 20 128/79 97 03/21/17 07:51 03/21/17 08:44 03/21/17 07:51 03/21/17 07:51 03/21/17 07:51 Intake and Output: 03/21/17 03/21/17 06:59 18:59 Intake Total 360 Balance 360 - Medications Medications: Current Medications Albuterol/Ipratropium (Duoneb 3 Mg/0.5 Mg (3 Ml) Ud) 3 ml INH RQ6 PRN PRN Reason: Shortness of Breath Albuterol/Ipratropium (Combivent Respimat) 1 puff IH RQID [facility] Heparin Sodium (Porcine) (Heparin) 5,000 units SC Q8 [facility] Last Admin: 03/21/17 05:55 Dose: 5,000 units Montelukast Sodium (Singulair) 10 mg PO DAILY [facility] Last Admin: 03/21/17 09:40 Dose: 10 mg Pantoprazole Sodium (Protonix Ec Tab) 40 mg PO DAILY [facility] Last Admin: 03/21/17 09:40 Dose: 40 mg Polyethylene Glycol (Miralax) 17 gm PO DAILY [facility] Last Admin: 03/21/17 09:40 Dose: 17 gm - Labs Labs: 03/21/17 10:56 03/21/17 10:56 PT 12.6 SECONDS (9.7-12.2) H 03/18/17 19:17 INR 1.1 03/18/17 19:17 APTT 26 SECONDS (21-34) 03/18/17 19:17
--- NOTE | 2017-03-21 14:24 | CP.PCM.PN ---
Subjective - Date & Time of Evaluation Date of Evaluation: 03/21/17 Time of Evaluation: 07:20 - Subjective Subjective: patient seen and examined. Sitting comfortably in no acute distress Denies cough, denies fever chills, denies chest pain CT angiogram consistent with old pulmonary embolism Patient stable from pulmonary standpoint Objective - Vital Signs/Intake and Output Vital Signs (last 24 hours): Temp Pulse Resp BP Pulse Ox 97.6 F 70 20 128/79 97 03/21/17 07:51 03/21/17 08:44 03/21/17 07:51 03/21/17 07:51 03/21/17 07:51 Intake and Output: 03/21/17 03/21/17 06:59 18:59 Intake Total 360 Balance 360 - Medications Medications: Current Medications Albuterol/Ipratropium (Duoneb 3 Mg/0.5 Mg (3 Ml) Ud) 3 ml INH RQ6 PRN PRN Reason: Shortness of Breath Albuterol/Ipratropium (Combivent Respimat) 1 puff IH RQID [facility] Heparin Sodium (Porcine) (Heparin) 5,000 units SC Q8 [facility] Last Admin: 03/21/17 14:10 Dose: 5,000 units Montelukast Sodium (Singulair) 10 mg PO DAILY [facility] Last Admin: 03/21/17 09:40 Dose: 10 mg Pantoprazole Sodium (Protonix Ec Tab) 40 mg PO DAILY [facility] Last Admin: 03/21/17 09:40 Dose: 40 mg Polyethylene Glycol (Miralax) 17 gm PO DAILY [facility] Last Admin: 03/21/17 09:40 Dose: 17 gm - Labs Labs: 03/21/17 10:56 03/21/17 10:56 PT 12.6 SECONDS (9.7-12.2) H 03/18/17 19: INR 1.1 03/18/17 19: APTT 26 SECONDS (21-34) 03/18/17 19:17
[2017-03-21 16:13] VITALS: BP 125/81; PULSE 78
--- NOTE | 2017-03-22 18:58 | CARD ---
APPROVED REPORT EKG Measurement Heart [id number] <Conclusion> Normal sinus rhythm Normal ECG
== END 2017-03-21 15:40 | disposition home or self-care (01) | DRG 392 ==
LOC: C.ER 10:42 → C.9E 19:11 → C.6T 20:33 → OBSVTOIN 03-19 16:42
PROVIDERS: ADMIT Internal Medicine Nephrology; ATTEND Internal Medicine Nephrology
DX: R10.9 Unspecified abdominal pain (principal); I10 Essential (primary) hypertension; J45.909 Unspecified asthma, uncomplicated; M19.90 Unspecified osteoarthritis, unspecified site; E78.00 Pure hypercholesterolemia, unspecified; Z86.711 Personal history of pulmonary embolism; G47.30 Sleep apnea, unspecified; Z88.0 Allergy status to penicillin; K21.9 Gastro-esophageal reflux disease without esophagitis

== ENCOUNTER 2017-07-18 13:40 | Emergency (ER) | payer MEDICARE ==
[2017-07-18 13:40] VITALS: BMI 16.1
[2017-07-18 13:51] VITALS: RESP 20
[2017-07-18] MEDS ORDERED: Sodium Chloride 0.9% 1,000 ML IV ONE (15:02)
[2017-07-18] MEDS ORDERED: Sodium Chloride 0.9% 1,000 ML ONE (15:20)
[2017-07-18 15:28] LABS: BASO # 0.1 K/uL (0.0-0.2); BASO % 0.7 % (0.0-2.0); EOS # 1.1 K/uL (0.0-0.7); EOS % 11.6 % (0.0-4.0); HEMATOCRIT 35.9 % (35.0-51.0); LYMPH # 1.7 K/uL (1.0-4.3); MEAN CELL VOLUME 86.3 fL (80.0-94.0); MEAN CORPUSCULAR HEMOGLOBIN 30.8 pg (27.0-31.0); MEAN CORPUSCULAR HGB CONC 35.6 g/dL (33.0-37.0); MONO # 0.5 K/uL (0.0-0.8); MONO % 5.8 % (0.0-10.0); RED CELL DISTRIBUTION WIDTH 12.8 % (11.5-14.5); WHITE BLOOD COUNT 9.3 K/uL (4.8-10.8)
[2017-07-18 15:39] LABS: ALB/GLOB RATIO 1.2 (1.0-2.1); ALKALINE PHOSPHATASE 54 U/L (38-126); ALT/SGPT 42 U/L (21-72); AST/SGOT 23 U/L (17-59); BILIRUBIN,TOTAL 0.6 mg/dL (0.2-1.3); BLOOD UREA NITROGEN 11 mg/dL (9-20); CALCIUM 8.8 mg/dl (8.6-10.4); CARBON DIOXIDE 26 mmol/L (22-30); CHLORIDE 97 mmol/L (98-107); GFR AFRICAN-AMERICAN > 60; GLUCOSE,RANDOM 110 mg/dL (75-110); POTASSIUM 3.6 mmol/L (3.6-5.2); SODIUM 138 mmol/L (132-148); TOTAL PROTEIN 7.6 g/dL (6.3-8.3)
[2017-07-18 15:52] LABS: RBC URINE 4 /hpf (0-3); URINE BILIRUBIN NEGATIVE (NEGATIVE); URINE COLOR Yellow (YELLOW); URINE GLUCOSE (UA) NORMAL (Normal); URINE KETONE NEGATIVE (NEGATIVE); URINE LEUKOCYTE ESTERASE NEG Leu/uL (Negative); URINE PROTEIN NEGATIVE (NEGATIVE); URINE UROBILINOGEN NORMAL mg/dL (0.2-1.0); WBC URINE 1 /hpf (0-5)
[2017-07-18 15:55] LABS: URINE BLOOD 1+ (NEGATIVE)
--- NOTE | 2017-07-18 16:06 | C.PDOC ---
Time Seen by Provider: 07/18/17 14:17 Chief Complaint (Nursing): Abdominal Pain History Per: Patient Onset/Duration Of Symptoms: Days (1) Current Symptoms Are (Timing): Still Present Severity: Moderate Location Of Pain/Discomfort: Epigastric Quality Of Discomfort: Unable To Describe, "Pain" Associated Symptoms: Nausea Exacerbating Factors: Food Alleviating Factors: None Last Bowel Movement: Yesterday Additional History Per: Prior Records Past Medical History Reviewed: Historical Data, Nursing Documentation, Vital Signs Vital Signs: Last Vital Signs Temp 97.7 F 07/18/17 13:49 Pulse 85 07/18/17 13:49 Resp 20 07/18/17 13:49 BP 124/70 07/18/17 13:49 Pulse Ox 99 07/18/17 13:49 - Medical History PMH: Arthritis, Asthma, Bronchitis, Deep Vein Thrombosis (Left Leg), Gastritis, HTN, Hypercholesterolemia, Peripheral Edema, Pneumonia, Pulmonary Embolism, Sleep Apnea (USE CPAP) Surgical History: Endoscopy - [facility] Procedures INFLUENZA VACCINATION (12/05/14) OTHER ENDOSCOPY OF SM INTEST (08/06/15) PLICATION OF VENA CAVA (12/05/14) Family History: States: Unknown Family Hx - Social History Hx Tobacco Use: No Hx Alcohol Use: No Hx Substance Use: No - Immunization History Hx Tetanus Toxoid Vaccination: No Hx Influenza Vaccination: No Hx Pneumococcal Vaccination: No Review Of Systems Except As Marked, All Systems Reviewed And Found Negative. Constitutional: Negative for: Fever, Weakness Cardiovascular: Negative for: Chest Pain Respiratory: Negative for: Shortness of Breath Gastrointestinal: Positive for: Abdominal Pain. Negative for: Vomiting, Diarrhea, Constipation, Melena, Hematochezia, Hematemesis Genitourinary: Negative for: Dysuria, Scrotal Pain Musculoskeletal: Negative for: Neck Pain Skin: Negative for: Rash Neurological: Negative for: Weakness, Numbness Physical Exam - Physical Exam Appears: Non-toxic, No Acute Distress Skin: Normal Color, Warm, Dry, No Rash Head: Atraumatic, Normacephalic Eye(s): bilateral: Normal Inspection, PERRL, EOMI Neck: Normal ROM, Supple Cardiovascular: Rhythm Regular Respiratory: Normal Breath Sounds, No Accessory Muscle Use Gastrointestinal/Abdominal: Soft, Tenderness (epigastric), No Distention, No Guarding, No Rebound Back: No CVA Tenderness Extremity: Normal ROM Neurological/Psych: Oriented x3, Normal Motor, Normal Sensation ED Course And Treatment - Laboratory Results Result Diagrams: 07/18/17 15:21 07/18/17 15:21 Lab Interpretation: No Acute Changes O2 Sat by Pulse Oximetry: 99 Pulse Ox Interpretation: Normal Progress - Interventions Interventions:: Observation, Intravenous fluid - Medications Administered Intravenous: Antiemetic, Other (PPI) - Data Reviewed Data Reviewed: Lab, Old records - Patient Status Patient status: Mostly improved - Continuity of Care Discussed patient case with:: Patient, ED Nurse - Patient Plan Patient Plan: Discharge, F/U with PCP, Continue present meds Disposition Counseled Patient/Family Regarding: Studies Performed, Diagnosis, Need For Followup, Rx Given - Disposition Referrals: Hoa Jessica MD [Staff Provider] - Disposition: HOME/ ROUTINE Disposition Time: 16:07 Condition: IMPROVED Additional Instructions: Follow up with your doctor. Return to the ER if you develop fever, vomiting, worsening of symptoms or if you have any other concerns. Prescriptions: Pantoprazole Sodium [Protonix] 40 mg PO DAILY #14 ect Instructions: Gastritis (ED) Forms: [facility] (British) Print Language: [place]ICAN CITIZEN - Clinical Impression Clinical Impression: Epigastric abdominal pain
[2017-07-18 16:21] VITALS: BP 118/68; PULSE 54; TEMP 97.4; O2SAT 98
== END 2017-07-18 16:25 | disposition home or self-care (01) ==
LOC: C.ER 13:40
DX: R10.13 Epigastric pain (principal)
CPT/HCPCS: 80053; 81001; 83690; 85025; 96361; 96374; 96375; 99285; C9113; J2765; J7040

== ENCOUNTER 2017-09-28 12:53 | Observation (INO) | payer MEDICARE ==
[2017-09-28 12:54] VITALS: BMI 31.1
--- NOTE | 2017-09-28 13:42 | C.PDOC ---
History Of Present Illness 62 y/o male, with PMHx of asthma, HTN, DVT, PE (not taking anticoagulants) presents to ED c/o chest pain and shortness of breath since last night. Denies fever, or other complaints at this time. Time Seen by Provider: 09/28/17 13:07 Chief Complaint (Nursing): Dizziness/Lightheaded History Per: Patient History/Exam Limitations: no limitations Onset/Duration Of Symptoms: Days Current Symptoms Are (Timing): Still Present Recent travel outside of the [place] States: No Additional History Per: Patient Past Medical History Reviewed: Historical Data, Nursing Documentation, Vital Signs Vital Signs: Last Vital Signs Temp 97.3 F L 09/28/17 13:00 Pulse 71 09/28/17 13:00 Resp 16 09/28/17 13:00 BP 132/76 09/28/17 13:00 Pulse Ox 100 09/28/17 16:50 - Medical History PMH: Arthritis, Asthma, Bronchitis, Deep Vein Thrombosis (Left Leg), Gastritis, HTN, Hypercholesterolemia, Peripheral Edema, Pneumonia, Pulmonary Embolism, Sleep Apnea (USE CPAP) Denies: Chronic Kidney Disease Surgical History: Endoscopy - [facility] Procedures INFLUENZA VACCINATION (12/05/14) OTHER ENDOSCOPY OF SM INTEST (08/06/15) PLICATION OF VENA CAVA (12/05/14) Family History: States: Unknown Family Hx - Social History Hx Tobacco Use: No Hx Alcohol Use: No Hx Substance Use: No - Immunization History Hx Tetanus Toxoid Vaccination: No Hx Influenza Vaccination: No Hx Pneumococcal Vaccination: No Review Of Systems Except As Marked, All Systems Reviewed And Found Negative. Constitutional: Negative for: Fever, Chills Cardiovascular: Positive for: Chest Pain. Negative for: Palpitations, Edema, Light Headedness Respiratory: Positive for: Shortness of Breath. Negative for: Cough, Sputum Gastrointestinal: Negative for: Nausea, Vomiting, Abdominal Pain Musculoskeletal: Negative for: Leg Pain Neurological: Negative for: Weakness, Numbness, Headache, Dizziness Physical Exam - Physical Exam Appears: Non-toxic, No Acute Distress Skin: Normal Color, Warm, Dry Head: Atraumatic, Normacephalic Eye(s): bilateral: Normal Inspection Oral Mucosa: Moist Neck: Supple Chest: Symmetrical, No Tenderness Cardiovascular: Rhythm Regular, No Murmur Respiratory: Normal Breath Sounds, No Rales, No Rhonchi, No Wheezing Gastrointestinal/Abdominal: Soft, No Tenderness Extremity: Normal ROM, No Pedal Edema Neurological/Psych: Oriented x3, Normal Speech ED Course And Treatment - Laboratory Results Result Diagrams: 09/28/17 13:37 09/28/17 13:37 ECG: Interpreted By Me, Viewed By Me ECG Rhythm: Sinus Rhythm ECG Interpretation: No Acute Changes Interpretation Of ECG: Non-specific ST wave changes. Rate From EC (bpm) O2 Sat by Pulse Oximetry: 100 (RA) Pulse Ox Interpretation: Normal Medical Decision Making Medical Decision Making: cp r/o pe, acs Blood work, UA, CXR, EKG, venous duplex scan of bilateral lower extremities ordered and reviewed. 400 pt reassesed pain free on phone in nad. ct shows chronic pe, dvt study shows superficial clot. accepted for obs by hospitalist. Disposition - Disposition Disposition Time: 04:00 Condition: STABLE Forms: [facility] (Mauritanian) - Clinical Impression Clinical Impression: Chest pain - Scribe Statement The provider has reviewed the documentation as recorded by the Scribe Beto Dickson All medical record entries made by the Scribe were at my direction and personally dictated by me. I have reviewed the chart and agree that the record accurately reflects my personal performance of the history, physical exam, medical decision making, and the department course for this patient. I have also personally directed, reviewed, and agree with the discharge instructions and disposition. Decision To Admit - Pt Status Changed To: Hospital Disposition Of: Observation - . Bed Request Type: Telemetry Admitting Physician: Clementina Carroll Patient Diagnosis: Chest pain
[2017-09-28 13:44] LABS: BASO # 0.1 K/uL (0.0-0.2); BASO % 0.8 % (0.0-2.0); EOS # 3.1 K/uL (0.0-0.7); EOS % 30.3 % (0.0-4.0); HEMATOCRIT 36.9 % (35.0-51.0); LYMPH # 2.7 K/uL (1.0-4.3); LYMPH % 26.1 % (20.0-40.0); MEAN CELL VOLUME 86.9 fL (80.0-94.0); MEAN CORPUSCULAR HEMOGLOBIN 30.1 pg (27.0-31.0); MEAN CORPUSCULAR HGB CONC 34.6 g/dL (33.0-37.0); MEAN PLATELET VOLUME 8.5 fL (7.2-11.7); MONO # 0.7 K/uL (0.0-0.8); MONO % 6.6 % (0.0-10.0); NRBC % 0.1 % (0.0-2.0); PLATELET COUNT 183 K/uL (130-400); RED CELL DISTRIBUTION WIDTH 12.6 % (11.5-14.5); WHITE BLOOD COUNT 10.4 K/uL (4.8-10.8)
[2017-09-28 13:50] LABS: INR 1.1
[2017-09-28 14:01] LABS: ALB/GLOB RATIO 1.2 (1.0-2.1); ALKALINE PHOSPHATASE 75 U/L (38-126); ALT/SGPT 33 U/L (21-72); AST/SGOT 28 U/L (17-59); BILIRUBIN,TOTAL 0.8 mg/dL (0.2-1.3); BLOOD UREA NITROGEN 14 mg/dL (9-20); CALCIUM 8.5 mg/dl (8.6-10.4); CARBON DIOXIDE 28 mmol/L (22-30); CHLORIDE 97 mmol/L (98-107); GFR AFRICAN-AMERICAN > 60; GLUCOSE,RANDOM 100 mg/dL (75-110); POTASSIUM 3.6 mmol/L (3.6-5.2); SODIUM 133 mmol/L (132-148); TOTAL PROTEIN 7.8 g/dL (6.3-8.3)
[2017-09-28 14:36] LABS: EOSINOPHIL 25 % (0-4); NEUTROPHIL 42 % (50-75); TOTAL CELLS COUNTED 100
--- NOTE | 2017-09-28 14:57 | RAD ---
PROCEDURE: CHEST RADIOGRAPH, 1 VIEW HISTORY: chest pain COMPARISON: 02/25/2017 FINDINGS: LUNGS: Clear. PLEURA: No pneumothorax or pleural fluid seen. CARDIOVASCULAR: No radiographic findings to suggest acute or significant cardiovascular disease. Right-sided aortic arch. OSSEOUS STRUCTURES: No significant abnormalities. VISUALIZED UPPER ABDOMEN: Normal. OTHER FINDINGS: None. IMPRESSION: No active disease. No acute/significant interval changes.
[2017-09-28] MEDS ORDERED: Iodixanol 320 MG/ML 100 ML BOTTLE IV ONE (15:13)
--- NOTE | 2017-09-28 16:10 | CT ---
CTA chest PE protocol Indication: cp h/o of pe Technique: Contiguous axial images were obtained through the chest with intravenous contrast enhancement. Sagittal and coronal reconstructions were generated and reviewed. This CT exam was performed using 1 or more of the falling dose reduction techniques: Automated exposure control, adjustment of the MAA and/or kV according to patient size, and/or use of iterative reconstruction technique. IV Contrast: 100 mL Visipaque Radiation dose (DLP): 492.45 MGy-cm. Comparison: Chest x-ray performed 09/28/17, CTA chest performed 03/18/17 Findings: Visualized portions of the inferior thyroid gland appear unremarkable. Cardiomegaly. 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 Re- demonstration of small eccentric filling defects in the bilateral lower lobe pulmonary arteries. 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 No evidence of central pulmonary embolus. Mildly dilated main pulmonary artery. No focal consolidation. No pleural effusion. No pneumothorax. No suspicious pulmonary nodules measuring greater than 5 mm. Limited visualized portions of the upper abdomen demonstrates at least 3 probable sub cm splenules. Partially imaged IVC filter. Degenerative changes of the spine. Impression: Cardiomegaly. 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 Re- demonstration of small eccentric filling defects in the bilateral lower lobe pulmonary arteries. 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 No evidence of central pulmonary embolus. Mildly dilated main pulmonary artery. IVC filter. Additional incidental findings as above.
[2017-09-28 16:34] LABS: URINE BILIRUBIN NEGATIVE (NEGATIVE); URINE COLOR Straw (YELLOW); URINE GLUCOSE (UA) NORMAL (Normal); URINE KETONE NEGATIVE (NEGATIVE); URINE LEUKOCYTE ESTERASE NEG Leu/uL (Negative); URINE PROTEIN NEGATIVE (NEGATIVE); URINE UROBILINOGEN NORMAL mg/dL (0.2-1.0); WBC URINE < 1 /hpf (0-5)
[2017-09-28 16:40] LABS: RBC URINE 2 /hpf (0-3); URINE BACTERIA RARE (<OCC)
[2017-09-28 16:41] LABS: URINE BLOOD NEGATIVE (NEGATIVE)
--- NOTE | 2017-09-28 17:11 | CP.PCM.HP ---
Addendum entered and electronically signed by Urbano Melvin DO 09/28/17 21:55: Troponin negative x1. f/u NATO + EKG x2 f/u flu, strep, mycoplasma Original Note: <Urbano Melvin - Last Filed: 09/28/17 19:21> History of Present Illness - History of Present Illness History of Present Illness: CC: cough and dyspnea x5 days. Parasternal chest pain since last night. HPI: This 62yo male with PMHx Asthma, DVT, PE (2013) - presents c/o cough and dyspnea for the past 5 days. He admits the cough has been productive of yellow sputum, however he has not taken anything OTC. He was coughing last night when his chest pain began, described as sharp, located at his mid-chest, and exacerbated with coughing and deep inspiration. He rates the pain a 6/10, and denies radiation of the pain. He also c/o increased dyspnea on exertion for the past 5 days. He can typically walk 5 blocks before becoming SOB, but he is down to 4 blocks since his symptoms began. He only uses his rescue inhaler once per week. He denies fever, chills, nausea, vomiting, abdominal pain, dysuria, sick contacts, recent travel, or any additional complaints. Of note, the patient is followed by Dr. Hammonds, who stopped his Coumadin 5mg PO daily, back in March 2017. Per patient, he recently saw Dr. Hammonds, who now suspects he may have another clot, and rob blood work recently in order to examine him for hypercoagulability. The patient has not yet received the results of this study. PMHX: DVT, PE (2013), HTN, gastritis, GERD, Asthma, Sleep study 2014 PSHx: IVC filter 2013 Meds: Singulair 10mg PO qD; Pepcid 20mg PO BID; Norvasc 10mg PO qD; Kdur 20meq qD; Bentyl 20mg PO qD; Flovent HFA 2puff BID; Ventolin HFA 90mcg 2puff Q4H PRN; Chlorthalidone 25mg PO qD. Allerg: Penicillin FamHx: Mother-HTN, Breast CA, Alzheimer's; Father- of head trauma; Grandmother-Asthma. Denies family history of clots. SocHxl: Denies history of tobacco and drug use PMD: Dr. Jessica (clinic) Review of Systems: -Gen: denies fever, chills, headache, lethargy, weakness. -HEENT: +dizziness, +nasal congestion, +mucous. denies change in vision, change in hearing, sore throat, dysphagia. -Cardio: +chest pain; denies palpitations, lower extremity edema, orthopnea. -Resp: +cough, +pain on inspiration, +dyspnea; denies cough, hemoptysis, wheezing. -GI: denies abdominal pain, nausea/vomiting, diarrhea/constipation, hematochezia , hematemesis. -: denies dysuria, urinary freq, incontinence, hematuria, change in urinary stream. -MSK: denies back pain, muscle weakness, radiating pain. -Skin: denies itching, rash, lesions. -Neuro: denies confusion, numbness, tingling, focal weakness, radicular pain, syncope. -Psych: denies anxiety, depression, H/I, S/I, hallucinations. Present on Admission - Present on Admission Any Indicators Present on Admission: Yes History of DVT/PE: Yes History of Uncontrolled Diabetes: No Past Patient History - Infectious Disease Hx of Infectious Diseases: None - Past Medical History & Family History Past Medical History?: Yes - Past Social History Smoking Status: Never Smoked - CARDIAC Hx Hypercholesterolemia: Yes Hx Hypertension: Yes Hx Peripheral Edema: Yes - PULMONARY Hx Asthma: Yes Hx Bronchitis: Yes Hx Pneumonia: Yes Hx Pulmonary Embolism: Yes Hx Sleep Apnea: Yes (USE CPAP) - NEUROLOGICAL Hx Neurological Disorder: No - HEENT Hx HEENT Problems: No - RENAL Hx Chronic Kidney Disease: No - ENDOCRINE/METABOLIC Hx Endocrine Disorders: No - HEMATOLOGICAL/ONCOLOGICAL Hx Blood Disorders: Yes - INTEGUMENTARY Hx Dermatological Problems: No - MUSCULOSKELETAL/RHEUMATOLOGICAL Hx Arthritis: Yes - GASTROINTESTINAL Hx Gastritis: Yes - GENITOURINARY/GYNECOLOGICAL Hx Genitourinary Disorders: No - PSYCHIATRIC Hx Substance Use: No - ANESTHESIA Hx Anesthesia: Yes Hx Anesthesia Reactions: No Hx Malignant Hyperthermia: No Meds Allergies/Adverse Reactions: Allergies Allergy/AdvReac Type Severity Reaction Status Date / Time Penicillins Allergy RASH Verified 09/28/17 13:03 Physical Exam - Constitutional Appears: Non-toxic, No Acute Distress - Head Exam Head Exam: ATRAUMATIC, NORMAL INSPECTION - Eye Exam Eye Exam: EOMI, Normal appearance, PERRL - ENT Exam ENT Exam: Mucous Membranes Moist, Normal External Ear Exam Additional comments: minimal erythema of posterior oropharynx (pt c/o post nasal drip) b/l erythema of nares - Neck Exam Neck exam: Negative for: Lymphadenopathy, Tenderness - Respiratory Exam Respiratory Exam: Clear to Auscultation Bilateral, NORMAL BREATHING PATTERN. absent: Rales, Rhonchi, Wheezes - Cardiovascular Exam Cardiovascular Exam: REGULAR RHYTHM, +S1, +S2. absent: Tachycardia, Diastolic murmur - GI/Abdominal Exam GI & Abdominal Exam: Distended (mildly), Normal Bowel Sounds, Soft. absent: Tenderness - Extremities Exam Extremities exam: Positive for: normal inspection, pedal pulses present (tibial) . Negative for: pedal edema, tenderness - Back Exam Back exam: NORMAL INSPECTION. absent: CVA tenderness (L), CVA tenderness (R) - Neurological Exam Neurological exam: Alert, CN II-XII Intact, Oriented x3, Reflexes Normal - Psychiatric Exam Psychiatric exam: Normal Affect, Normal Mood (poor eye contact) Results - Vital Signs Recent Vital Signs: Last Vital Signs Temp 97.3 F L 09/28/17 13:00 Pulse 71 09/28/17 13:00 Resp 16 09/28/17 13:00 BP 132/76 09/28/17 13:00 Pulse Ox 100 09/28/17 16:51 - Labs Result Diagrams: 09/28/17 13:37 09/28/17 13:37 Labs: Laboratory Results - last 24 hr 09/28/17 09/28/17 09/28/17 13:37 13:37 13:37 WBC 10.4 RBC 4.24 L Hgb 12.8 Hct 36.9 MCV 86.9 MCH 30.1 MCHC 34.6 RDW 12.6 Plt Count 183 MPV 8.5 Neut % (Auto) 36.2 L Lymph % (Auto) 26.1 Lares % (Auto) 6.6 Eos % (Auto) 30.3 H Baso % (Auto) 0.8 Neut # 3.8 Lymph # 2.7 Lares # 0.7 Eos # 3.1 H Baso # 0.1 Neutrophils % (Manual) 42 L Lymphocytes % (Manual) 29 Monocytes % (Manual) 4 Eosinophils % (Manual) 25 H Platelet Estimate Normal PT 12.1 INR 1.1 APTT 30 D-Dimer, Quantitative 1109 H Sodium 133 Potassium 3.6 Chloride 97 L Carbon Dioxide 28 Anion Gap 13 BUN 14 Creatinine 1.0 Est GFR ( Amer) > 60 Est GFR (Non-Af Amer) > 60 Random Glucose 100 Calcium 8.5 L Total Bilirubin 0.8 AST 28 ALT 33 Alkaline Phosphatase 75 Troponin I < 0.0120 NT-Pro-B Natriuret Pep 47.7 Total Protein 7.8 Albumin 4.2 Globulin 3.6 Albumin/Globulin Ratio 1.2 Urine Color Urine Clarity Urine pH Ur Specific [place] Urine Protein Urine Glucose (UA) Urine Ketones Urine Blood Urine Nitrate Urine Bilirubin Urine Urobilinogen Ur Leukocyte Esterase Urine WBC (Auto) Urine RBC (Auto) Urine Bacteria 09/28/17 16:28 WBC RBC Hgb Hct MCV MCH MCHC RDW Plt Count MPV Neut % (Auto) Lymph % (Auto) Lares % (Auto) Eos % (Auto) Baso % (Auto) Neut # Lymph # Lares # Eos # Baso # Neutrophils % (Manual) Lymphocytes % (Manual) Monocytes % (Manual) Eosinophils % (Manual) Platelet Estimate PT INR APTT D-Dimer, Quantitative Sodium Potassium Chloride Carbon Dioxide Anion Gap BUN Creatinine Est GFR ( Amer) Est GFR (Non-Af Amer) Random Glucose Calcium Total Bilirubin AST ALT Alkaline Phosphatase Troponin I NT-Pro-B Natriuret Pep Total Protein Albumin Globulin Albumin/Globulin Ratio Urine Color Straw Urine Clarity Clear Urine pH 7.0 Ur Specific [place] 1.023 Urine Protein Negative Urine Glucose (UA) Normal Urine Ketones Negative Urine Blood Negative Urine Nitrate Negative Urine Bilirubin Negative Urine Urobilinogen Normal Ur Leukocyte Esterase Neg Urine WBC (Auto) < 1 Urine RBC (Auto) 2 Urine Bacteria Rare Assessment & Plan - Assessment and Plan (Free Text) Assessment: Chest Pain -patient is being worked up for ACS, although his presentation is suspicious for costochondritis -admit to telemetry for observation -CXR - negative -Chest CT w/contrast: No gross acute findings. Cardiomegaly. 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 Re- demonstration of small eccentric filling defects in the bilateral lower lobe pulmonary arteries. 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 No evidence of central pulmonary embolus. Mildly dilated main pulmonary artery. IVC filter. (see full report) -Acetaminophen (Tylenol 325mg Tab) 650 mg PO Q6 PRN -Crestor 10 mg PO HS [facility] -ASA 81 mg PO qD -Oxygen 2L NC -Toradol 30mg IVP once -f/u A1c, TSH/Free T4, FLP Superficial clot on LE Duplex -LE Duplex - superficial clot, awaiting official read. ASA 81mg PO qD Patient has not had coumadin therapy since March 2017 - per patient, coumadin stopped by Dr. Hammonds ([facility]) Call placed to Dr. Hammonds. Spoke with his partner Dr. Pierce. No need for consult at this time, patient to followup with Dr. Hammonds after discharge. URI / Cough Cough productive of yellow sputum x 5days Fluticasone Propionate (Flonase) 1 spr JANY DAILY [facility] Guaifenesin (Mucinex La) 600 mg PO BID [facility] Phenergan/Codeine Oral Syrup) 5 ml PO Q4 PRN HTN Amlodipine Besylate (Norvasc) 10 mg PO DAILY [facility] Chlorthalidone (Hygroton) 25 mg PO DAILY [facility] Potassium Chloride Oral Soln) 20 meq PO DAILY [facility] Hx of Gastritis Dicyclomine HCl (Bentyl) 20 mg PO DAILY [facility] Famotidine (Pepcid) 20 mg PO BID [facility] Hx of Asthma Albuterol/Ipratropium (Duoneb 3 Mg/0.5 Mg (3 Ml) Ud) 3 ml INH RQ6 [facility] Fluticasone Propionate [Flovent Hfa]) 2 puff IH BID [facility] Singulair 10 mg PO HS [facility] Patient does not use CPAP at home. Oxygen 2L NC. If patient desaturates, CPAP10 may be used. Prophylaxis No SCDs +hx of DVT, current superficial clot on LE Duplex Heart healthy diet Heparin 5,000 units SC Q8 [facility] Famotidine (Pepcid) 20 mg PO BID [facility] - Date & Time Date: 09/28/17 Time: 17:00 <Clementina Carroll V - Last Filed: 09/28/17 23:58> Results - Vital Signs Recent Vital Signs: Last Vital Signs Temp 98.0 F 09/28/17 19:15 Pulse 62 09/28/17 19:30 Resp 20 09/28/17 19:15 BP 126/82 09/28/17 19:15 Pulse Ox 97 09/28/17 19:15 - Labs Result Diagrams: 09/28/17 13:37 09/28/17 13:37 Labs: Laboratory Results - last 24 hr 09/28/17 09/28/17 09/28/17 13:37 13:37 13:37 WBC 10.4 RBC 4.24 L Hgb 12.8 Hct 36.9 MCV 86.9 MCH 30.1 MCHC 34.6 RDW 12.6 Plt Count 183 MPV 8.5 Neut % (Auto) 36.2 L Lymph % (Auto) 26.1 Lares % (Auto) 6.6 Eos % (Auto) 30.3 H Baso % (Auto) 0.8 Neut # 3.8 Lymph # 2.7 Lares # 0.7 Eos # 3.1 H Baso # 0.1 Neutrophils % (Manual) 42 L Lymphocytes % (Manual) 29 Monocytes % (Manual) 4 Eosinophils % (Manual) 25 H Platelet Estimate Normal PT 12.1 INR 1.1 APTT 30 D-Dimer, Quantitative 1109 H Sodium 133 Potassium 3.6 Chloride 97 L Carbon Dioxide 28 Anion Gap 13 BUN 14 Creatinine 1.0 Est GFR ( Amer) > 60 Est GFR (Non-Af Amer) > 60 Random Glucose 100 Calcium 8.5 L Total Bilirubin 0.8 AST 28 ALT 33 Alkaline Phosphatase 75 Total Creatine Kinase CK-MB (Mass) Troponin I < 0.0120 NT-Pro-B Natriuret Pep 47.7 Total Protein 7.8 Albumin 4.2 Globulin 3.6 Albumin/Globulin Ratio 1.2 Urine Color Urine Clarity Urine pH Ur Specific [place] Urine Protein Urine Glucose (UA) Urine Ketones Urine Blood Urine Nitrate Urine Bilirubin Urine Urobilinogen Ur Leukocyte Esterase Urine WBC (Auto) Urine RBC (Auto) Urine Bacteria Influenza Typ A,B (EIA) Grp A Beta Strep Ag 09/28/17 09/28/17 09/28/17 16:28 21:48 21:56 WBC RBC Hgb Hct MCV MCH MCHC RDW Plt Count MPV Neut % (Auto) Lymph % (Auto) Lares % (Auto) Eos % (Auto) Baso % (Auto) Neut # Lymph # Lares # Eos # Baso # Neutrophils % (Manual) Lymphocytes % (Manual) Monocytes % (Manual) Eosinophils % (Manual) Platelet Estimate PT INR APTT D-Dimer, Quantitative Sodium Potassium Chloride Carbon Dioxide Anion Gap BUN Creatinine Est GFR ( Amer) Est GFR (Non-Af Amer) Random Glucose Calcium Total Bilirubin AST ALT Alkaline Phosphatase Total Creatine Kinase 88 CK-MB (Mass) 0.46 Troponin I < 0.0120 NT-Pro-B Natriuret Pep Total Protein Albumin Globulin Albumin/Globulin Ratio Urine Color Straw Urine Clarity Clear Urine pH 7.0 Ur Specific [place] 1.023 Urine Protein Negative Urine Glucose (UA) Normal Urine Ketones Negative Urine Blood Negative Urine Nitrate Negative Urine Bilirubin Negative Urine Urobilinogen Normal Ur Leukocyte Esterase Neg Urine WBC (Auto) < 1 Urine RBC (Auto) 2 Urine Bacteria Rare Influenza Typ A,B (EIA) Negative for flu a/b Grp A Beta Strep Ag Negative Attending/Attestation - Attestation I have personally seen and examined this patient.: Yes I have fully participated in the care of the patient.: Yes I have reviewed all pertinent clinical information: Yes Notes (Text): Patient seen, examined and case discussed with day-time resident. Patient has hx of provoked DVT s/p ankle surgery and associated PE in 2013 s/p IVC filter who was discontinued off anticoagulation with heme-onc. Patient comes in for pleuritic chest pain, associated with productive cough, non -bloody with associated post-nasal drip. Patient reports he is taking medications as described, has not needed to use rescue inhaler more than once a day. Discussed admitting orders with day-time resident for chest pain considering patient has cardiac risk for Hypertension and male. Patient has no prior cardiac history. Assessment/Plan 1) Chest Pain -Observation to telemetry -Chest pain, considering cardiac etiology -CXR - negative -Chest CT w/contrast: No gross acute findings. Cardiomegaly. 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 Re- demonstration of small eccentric filling defects in the bilateral lower lobe pulmonary arteries. 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 No evidence of central pulmonary embolus. Mildly dilated main pulmonary artery. IVC filter. (see full report) -Acetaminophen (Tylenol 325mg Tab) 650 mg PO Q6 PRN -Crestor 10 mg PO HS [facility] -ASA 81 mg PO qDaily -Oxygen 2L NC -Toradol 30mg IVP once given tenderness to palpation over intercostal of ribs and sternal -f/u A1c, TSH/Free T4, FLP 2)Superficial clot on LE Duplex -LE Duplex - superficial clot, awaiting official read. ASA 81mg PO qDaily Patient has not had coumadin therapy since March 2017 - per patient, coumadin stopped by Dr. Hammonds ([facility]) Call placed to Dr. Hammonds. Spoke with his partner Dr. Pierce. No need for consult at this time, patient to followup with Dr. Hammonds after discharge. 3) URI / Cough Cough productive of yellow sputum x 5days Fluticasone Propionate (Flonase) 1 spr JANY DAILY [facility] Guaifenesin (Mucinex La) 600 mg PO BID [facility] Phenergan/Codeine Oral Syrup) 5 ml PO Q4 PRN cough 4) HTN Amlodipine Besylate (Norvasc) 10 mg PO DAILY [facility] Chlorthalidone (Hygroton) 25 mg PO DAILY [facility] Potassium Chloride Oral Soln) 20 meq PO DAILY [facility] Order for echocardiogram 5) Hx of Gastritis Dicyclomine HCl (Bentyl) 20 mg PO DAILY [facility] Famotidine (Pepcid) 20 mg PO BID [facility] 6)Hx of Asthma Patient not in acute exacerbation. Albuterol/Ipratropium (Duoneb 3 Mg/0.5 Mg (3 Ml) Ud) 3 ml INH RQ6 [facility] Fluticasone Propionate [Flovent Hfa]) 2 puff IH BID [facility] Singulair 10 mg PO HS [facility] Patient does not use CPAP at home. Oxygen 2L NC. If patient desaturates, CPAP10 may be used. 7) Prophylaxis No SCDs +hx of DVT, current superficial clot on LE Duplex Heart healthy diet Heparin 5,000 units SC Q8 [facility] Famotidine (Pepcid) 20 mg PO BID [facility]
[2017-09-28] MEDS ORDERED: Promethazine/Cod 6.25mg-10mg/5ml Syr UD PO PRN (18:16)
[2017-09-28] MEDS: Albuterol-Ipratrop 3 mg / 0.5 (3 ml) UD INH SCH (20:06)
[2017-09-28] MEDS: guaiFENesin 600 mg ER Tab PO SCH (20:45)
[2017-09-29] MEDS: Albuterol-Ipratrop 3 mg / 0.5 (3 ml) UD INH SCH ×3 (01:23→13:35)
[2017-09-29 07:25] LABS: BASO # 0.1 K/uL (0.0-0.2); BASO % 0.6 % (0.0-2.0); EOS # 2.8 K/uL (0.0-0.7); EOS % 32.2 % (0.0-4.0); HEMATOCRIT 37.1 % (35.0-51.0); LYMPH % 23.4 % (20.0-40.0); MEAN CELL VOLUME 86.5 fL (80.0-94.0); MEAN CORPUSCULAR HEMOGLOBIN 30.1 pg (27.0-31.0); MEAN CORPUSCULAR HGB CONC 34.8 g/dL (33.0-37.0); MEAN PLATELET VOLUME 8.5 fL (7.2-11.7); MONO # 0.6 K/uL (0.0-0.8); MONO % 6.8 % (0.0-10.0); PLATELET COUNT 183 K/uL (130-400); RED CELL DISTRIBUTION WIDTH 12.7 % (11.5-14.5); WHITE BLOOD COUNT 8.6 K/uL (4.8-10.8)
--- NOTE | 2017-09-29 07:32 | CP.PCM.PN ---
Objective - Vital Signs/Intake and Output Vital Signs (last 24 hours): Temp Pulse Resp BP Pulse Ox 97.6 F 63 20 108/69 99 09/29/17 00:35 09/29/17 04:11 09/29/17 00:35 09/29/17 00:35 09/29/17 00:35 - Medications Medications: Current Medications Acetaminophen (Tylenol 325mg Tab) 650 mg PO Q6 PRN PRN Reason: Pain, moderate (4-7) Albuterol/Ipratropium (Duoneb 3 Mg/0.5 Mg (3 Ml) Ud) 3 ml INH RQ6 [facility] Last Admin: 09/29/17 01:23 Dose: 3 ml Amlodipine Besylate (Norvasc) 10 mg PO DAILY [facility] Aspirin (Aspirin Chewable) 81 mg PO DAILY [facility] Chlorthalidone (Hygroton) 25 mg PO DAILY [facility] Dicyclomine HCl (Bentyl) 20 mg PO DAILY [facility] Docusate Sodium (Colace) 100 mg PO BID [facility] Stop: 09/29/17 18:01 Last Admin: 09/28/17 22:53 Dose: 100 mg Famotidine (Pepcid) 20 mg PO BID [facility] Fluticasone Propionate (Flonase) 1 spr JANY DAILY [facility] Guaifenesin (Mucinex La) 600 mg PO BID [facility] Last Admin: 09/28/17 20:45 Dose: 600 mg Heparin Sodium (Porcine) (Heparin) 5,000 units SC Q8 [facility] Last Admin: 09/29/17 05:10 Dose: 5,000 units Mometasone Furoate (Asmanex Twisthaler 220 Mcg) 1 puff IH RBID [facility] Montelukast Sodium (Singulair) 10 mg PO HS [facility] Last Admin: 09/28/17 21:40 Dose: 10 mg Potassium Chloride (Potassium Chloride Oral Soln) 20 meq PO DAILY [facility] Promethazine HCl/Codeine (Phenergan/Codeine Oral Syrup) 5 ml PO Q4 PRN PRN Reason: Cough Rosuvastatin Calcium (Crestor) 10 mg PO HS [facility] Last Admin: 09/28/17 21:40 Dose: 10 mg - Labs Labs: 09/28/17 13:37 09/28/17 13:37 PT 12.1 SECONDS (9.7-12.2) 09/28/17 13:37 INR 1.1 09/28/17 13:37 APTT 30 SECONDS (21-34) 09/28/17 13:37
[2017-09-29 07:57] LABS: ALB/GLOB RATIO 1.2 (1.0-2.1); ALKALINE PHOSPHATASE 70 U/L (38-126); ALT/SGPT 41 U/L (21-72); AST/SGOT 27 U/L (17-59); BLOOD UREA NITROGEN 12 mg/dL (9-20); CALCIUM 8.5 mg/dl (8.6-10.4); CARBON DIOXIDE 28 mmol/L (22-30); CHLORIDE 97 mmol/L (98-107); CHOLESTEROL 191 mg/dL (0-199); GFR AFRICAN-AMERICAN > 60; GLUCOSE,RANDOM 88 mg/dL (75-110); MAGNESIUM 1.8 mg/dL (1.6-2.3); PHOSPHOROUS 3.9 mg/dL (2.5-4.5); POTASSIUM 3.4 mmol/L (3.6-5.2); SODIUM 133 mmol/L (132-148); TOTAL PROTEIN 7.2 g/dL (6.3-8.3)
[2017-09-29] MEDS ORDERED: Mometasone 220 mcg/puff-14 puff Inh IH SCH (08:00)
[2017-09-29 08:51] LABS: THYROID STIMULATING HORMONE 0.75 mIU/L (0.46-4.68)
[2017-09-29] MEDS ORDERED: Potassium Chloride 20 mEq/15 ml LIQ UD PO SCH (10:00)
[2017-09-29] MEDS ORDERED: Fluticasone Nasal 50 mcg/Spray NAS SCH (10:00)
[2017-09-29] MEDS ORDERED: Potassium Chloride 20 mEq ER Tab PO ONE (10:55)
[2017-09-29] MEDS: guaiFENesin 600 mg ER Tab PO SCH (10:58)
[2017-09-29 11:12] LABS: EOSINOPHIL 29 % (0-4); NEUTROPHIL 39 % (50-75); TOTAL CELLS COUNTED 100
[2017-09-29 11:14] LABS: LARGE PLATELETS PRESENT
[2017-09-29 11:30] VITALS: O2SAT 100
--- NOTE | 2017-09-29 12:55 | CP.PCM.DIS ---
Provider - Provider Date of Admission: 09/28/17 16:18 Attending physician: Clementina Carroll DO Time Spent in preparation of Discharge (in minutes): 31 Diagnosis - Discharge Diagnosis (1) Costochondritis Status: Acute Comment: Please refer to discharge summary (2) Bronchitis Status: Acute Comment: Please refer to discharge summary (3) Superficial vein thrombosis Status: Acute Comment: will need Aspirin 81mg once a day (needs food) (4) Asthma Status: Chronic Comment: Please refer to discharge summary (5) History of DVT of lower extremity Status: Chronic Comment: Please refer to discharge summary (6) History of pulmonary embolism Status: Chronic Comment: Please refer to discharge summary. Patient to f/u with Dr. Hammonds as outpatient. Resident spoke with his partner, Dr. murry upon admission Hospital Course - Lab Results Lab Results: Micro Results 09/28/17 21:56 Throat Group A Strep Throat Culture - Final NO BETA STREP GROUP A ISOLATED. Most Recent Lab Values WBC 8.6 K/uL (4.8-10.8) 09/29/17 07:17 RBC 4.29 Mil/uL (4.40-5.90) L 09/29/17 07:17 Hgb 12.9 g/dL (12.0-18.0) 09/29/17 07:17 Hct 37.1 % (35.0-51.0) 09/29/17 07:17 MCV 86.5 fL (80.0-94.0) 09/29/17 07:17 MCH 30.1 pg (27.0-31.0) 09/29/17 07:17 MCHC 34.8 g/dL (33.0-37.0) 09/29/17 07:17 RDW 12.7 % (11.5-14.5) 09/29/17 07:17 Plt Count 183 K/uL (130-400) 09/29/17 07:17 MPV 8.5 fL (7.2-11.7) 09/29/17 07:17 Neut % (Auto) 37.0 % (50.0-75.0) L 09/29/17 07:17 Lymph % (Auto) 23.4 % (20.0-40.0) 09/29/17 07:17 Sandoval % (Auto) 6.8 % (0.0-10.0) 09/29/17 07:17 Eos % (Auto) 32.2 % (0.0-4.0) H 09/29/17 07:17 Baso % (Auto) 0.6 % (0.0-2.0) 09/29/17 07:17 Neut # 3.2 K/uL (1.8-7.0) 09/29/17 07:17 Lymph # 2.0 K/uL (1.0-4.3) 09/29/17 07:17 Sandoval # 0.6 K/uL (0.0-0.8) 09/29/17 07:17 Eos # 2.8 K/uL (0.0-0.7) H 09/29/17 07:17 Baso # 0.1 K/uL (0.0-0.2) 09/29/17 07:17 Neutrophils % (Manual) 39 % (50-75) L 09/29/17 07:17 Band Neutrophils % 1 % (0-2) 09/29/17 07:17 Lymphocytes % (Manual) 23 % (20-40) 09/29/17 07:17 Monocytes % (Manual) 8 % (0-10) 09/29/17 07:17 Eosinophils % (Manual) 29 % (0-4) H 09/29/17 07:17 Toxic Granulation Present 09/29/17 07:17 Platelet Estimate Normal (NORMAL) 09/29/17 07:17 Large Platelets Present 09/29/17 07:17 Anisocytosis (manual) Slight 09/29/17 07:17 PT 12.1 SECONDS (9.7-12.2) 09/28/17 13:37 INR 1.1 09/28/17 13:37 APTT 33 SECONDS (21-34) 09/29/17 07:17 D-Dimer, Quantitative 1109 ng/mlDDU (0-243) H 09/28/17 13:37 Sodium 133 mmol/L (132-148) 09/29/17 07:17 Potassium 3.4 mmol/L (3.6-5.2) L 09/29/17 07:17 Chloride 97 mmol/L (98-107) L 09/29/17 07:17 Carbon Dioxide 28 mmol/L (22-30) 09/29/17 07:17 Anion Gap 12 (10-20) 09/29/17 07:17 BUN 12 mg/dL (9-20) 09/29/17 07:17 Creatinine 1.0 mg/dL (0.8-1.5) 09/29/17 07:17 Est GFR ( Amer) > 60 09/29/17 07:17 Est GFR (Non-Af Amer) > 60 09/29/17 07:17 Random Glucose 88 mg/dL (75-110) 09/29/17 07:17 Hemoglobin A1c 5.4 % (4.2-6.5) 09/29/17 07:17 Calcium 8.5 mg/dl (8.6-10.4) L 09/29/17 07:17 Phosphorus 3.9 mg/dL (2.5-4.5) 09/29/17 07:17 Magnesium 1.8 mg/dL (1.6-2.3) 09/29/17 07:17 Total Bilirubin 1.0 mg/dL (0.2-1.3) 09/29/17 07:17 AST 27 U/L (17-59) 09/29/17 07:17 ALT 41 U/L (21-72) 09/29/17 07:17 Alkaline Phosphatase 70 U/L (38-126) 09/29/17 07:17 Total Creatine Kinase 80 U/L (55-170) 09/29/17 07:17 CK-MB (Mass) 0.34 ng/mL (0.0-3.38) 09/29/17 07:17 Troponin I < 0.0120 ng/mL (0.00-0.120) 09/29/17 07:17 NT-Pro-B Natriuret Pep 47.7 pg/mL (0-900) 09/28/17 13:37 Total Protein 7.2 g/dL (6.3-8.3) 09/29/17 07:17 Albumin 3.9 g/dL (3.5-5.0) 09/29/17 07:17 Globulin 3.3 gm/dL (2.2-3.9) 09/29/17 07:17 Albumin/Globulin Ratio 1.2 (1.0-2.1) 09/29/17 07:17 Triglycerides 54 mg/dL (0-149) D 09/29/17 07:17 Cholesterol 191 mg/dL (0-199) 09/29/17 07:17 LDL Cholesterol Direct 128 mg/dL (0-129) 09/29/17 07:17 HDL Cholesterol 42 mg/dL (30-70) 09/29/17 07:17 Free T4 1.22 ng/dL (0.78-2.19) 09/29/17 07:17 TSH 3rd Generation 0.75 mIU/L (0.46-4.68) 09/29/17 07:17 Urine Color Straw (YELLOW) 09/28/17 16:28 Urine Clarity Clear (Clear) 09/28/17 16:28 Urine pH 7.0 (5.0-8.0) 09/28/17 16:28 Ur Specific [place] 1.023 (1.003-1.030) 09/28/17 16:28 Urine Protein Negative mg/dL (NEGATIVE) 09/28/17 16:28 Urine Glucose (UA) Normal mg/dL (Normal) 09/28/17 16:28 Urine Ketones Negative mg/dL (NEGATIVE) 09/28/17 16:28 Urine Blood Negative (NEGATIVE) 09/28/17 16:28 Urine Nitrate Negative (NEGATIVE) 09/28/17 16:28 Urine Bilirubin Negative (NEGATIVE) 09/28/17 16:28 Urine Urobilinogen Normal mg/dL (0.2-1.0) 09/28/17 16:28 Ur Leukocyte Esterase Neg Jolene/uL (Negative) 09/28/17 16:28 Urine WBC (Auto) < 1 /hpf (0-5) 09/28/17 16:28 Urine RBC (Auto) 2 /hpf (0-3) 09/28/17 16:28 Urine Bacteria Rare (<OCC) 09/28/17 16:28 Influenza Typ A,B (EIA) Negative for flu a/b (NEGATIVE) 09/28/17 21:56 Grp A Beta Strep Ag Negative (NEGATIVE) 09/28/17 21:56 - Hospital Course Hospital Course: As per H&P "CC: cough and dyspnea x5 days. Parasternal chest pain since last night. HPI: This 62yo male with PMHx Asthma, DVT, PE (2013) - presents c/o cough and dyspnea for the past 5 days. He admits the cough has been productive of yellow sputum, however he has not taken anything OTC. He was coughing last night when his chest pain began, described as sharp, located at his mid-chest, and exacerbated with coughing and deep inspiration. He rates the pain a 6/10, and denies radiation of the pain. He also c/o increased dyspnea on exertion for the past 5 days. He can typically walk 5 blocks before becoming SOB, but he is down to 4 blocks since his symptoms began. He only uses his rescue inhaler once per week. He denies fever, chills, nausea, vomiting, abdominal pain, dysuria, sick contacts, recent travel, or any additional complaints. Of note, the patient is followed by Dr. Hammonds, who stopped his Coumadin 5mg PO daily, back in March 2017. Per patient, he recently saw Dr. Hammonds, who now suspects he may have another clot, and rob blood work recently in order to examine him for hypercoagulability. The patient has not yet received the results of this study. PMHX: DVT, PE (2013), HTN, gastritis, GERD, Asthma, Sleep study 2014 PSHx: IVC filter 2013 Meds: Singulair 10mg PO qD; Pepcid 20mg PO BID; Norvasc 10mg PO qD; Kdur 20meq qD; Bentyl 20mg PO qD; Flovent HFA 2puff BID; Ventolin HFA 90mcg 2puff Q4H PRN; Chlorthalidone 25mg PO qD. Allerg: Penicillin FamHx: Mother-HTN, Breast CA, Alzheimer's; Father- of head trauma; Grandmother-Asthma. Denies family history of clots. SocHxl: Denies history of tobacco and drug use PMD: Dr. Jessica (clinic) Review of Systems: -Gen: denies fever, chills, headache, lethargy, weakness. -HEENT: +dizziness, +nasal congestion, +mucous. denies change in vision, change in hearing, sore throat, dysphagia. -Cardio: +chest pain; denies palpitations, lower extremity edema, orthopnea. -Resp: +cough, +pain on inspiration, +dyspnea; denies cough, hemoptysis, wheezing. -GI: denies abdominal pain, nausea/vomiting, diarrhea/constipation, hematochezia , hematemesis. -: denies dysuria, urinary freq, incontinence, hematuria, change in urinary stream. -MSK: denies back pain, muscle weakness, radiating pain. -Skin: denies itching, rash, lesions. -Neuro: denies confusion, numbness, tingling, focal weakness, radicular pain, syncope. -Psych: denies anxiety, depression, H/I, S/I, hallucinations." Patient was observed on telemetry. The summary of patient workup, discharge instructions, and medications upon discharge during hospitalization noted in my note below. This is a summary of patient's hospitalization. please refer to EMR for further details. - Date & Time of H&P Date of H&P: 09/28/17 Time of H&P: 17:00 Discharge Exam - Head Exam Head Exam: ATRAUMATIC, NORMAL INSPECTION - Eye Exam Eye Exam: EOMI Pupil Exam: PERRL - ENT Exam ENT Exam: Mucous Membranes Moist - Respiratory Exam Respiratory Exam: Clear to PA & Lateral, NORMAL BREATHING PATTERN. absent: Rales, Rhonchi, Wheezes - Cardiovascular Exam Cardiovascular Exam: REGULAR RHYTHM, +S1, +S2 Additional comments: tender to palpation over the sternum - GI/Abdominal Exam GI & Abdominal Exam: Normal Bowel Sounds, Soft. absent: Distended, Firm, Guarding, Rebound, Rigid, Tenderness - Extremities Exam Extremities exam: pedal pulses present - Back Exam Back exam: absent: CVA tenderness (L), CVA tenderness (R) - Neurological Exam Neurological exam: Alert, Oriented x3 - Skin Skin Exam: Dry, Intact, Normal Color, Warm Discharge Plan - Discharge Medications Prescriptions: Aspirin [Aspirin Chewable] 81 mg PO DAILY #30 chew Guaifenesin [Mucinex] 600 mg PO BID 30 Days tab.er.12h Promethazine/Codeine [Phenergan/Codeine Oral Syrup] 5 ml PO Q4H PRN #120 udc PRN Reason: Cough - Follow Up Plan Condition: STABLE Disposition: HOME/ ROUTINE Attending/Attestation - Attestation I have personally seen and examined this patient.: Yes I have fully participated in the care of the patient.: Yes I have reviewed all pertinent clinical information, including history, physical exam and plan: Yes Notes (Text): Patient seen, examined, and case discussed with day-time resident. Patient seen this afternoon. Patient denies headache, denies cough, denies dizziness, denies abdominal pain, denies nausea, denies vomitting, denies dysuria, denies hematuria. Patient reports rhinorrhea and post-nasal drip. Patient reports tenderness over sternum resolved with Toradol 30mg IVPX1. Reviewed information with the patient at bedside. Patient is medically stable for discharge. Patient recommended to follow-up with [facility] ([phone]) within one week discharg. New Prescriptions: 1) Aspirin 81mg one tab per day (30 tabs/0 refills) for superficial vein thrombosis 2) Naproxen 500mg 1 tab twice a day (14 tabs/0 refills) to take with food 3) Promethazine w codeine 5ml PO Q 4H PRN cough (120 cc/0 refill) 4) Mucinex 600mg PO BID (30 tabs/0 refills) Patient to resume home medications upon discharge. This is a summary of patient's hospitalization. Please refer to EMR for further details. Discharge Diagnoses: 1) Costochondritis * Observation to telemetry * CXR - negative * Chest CT w/contrast: No gross acute findings. Cardiomegaly. 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 Re- demonstration of small eccentric filling defects in the bilateral lower lobe pulmonary arteries. 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 No evidence of central pulmonary embolus. Mildly dilated main pulmonary artery. IVC filter. (see full report) * Acetaminophen (Tylenol 325mg Tab) 650 mg PO Q6 PRN * Crestor 10 mg PO HS CYNTHIA * NATO: negativeX3 * Hgab1c: 5.4 * TSH: 0.75, Free T4: 1.22 * Lipid Panel: T, cholestrol: 191, LDL: 128, HDL; 42 * EKG: NSR * Relieved with Toradol 30mg IV-->will discharge with Naproxen 500mg PO BID (14 tabs/0 refills) to take with food given hx of gastritis 2) Superficial clot on LE Duplex * LE Duplex - superficial clot, awaiting official read. * Patient to continue ASA 81mg PO qDaily 3) URI * Cough productive of yellow sputum x 5days * c/w Fluticasone Propionate (Flonase) 1 spr JANY DAILY CYNTHIA script provided * c/w Guaifenesin (Mucinex La) 600 mg PO BID CYNTHIA script provided * c/w Phenergan/Codeine Oral Syrup) 5 ml PO Q4 PRN cough (120 cc/0 refill) script provided * Negative influenza * Negative Group A Strep * Chest xray and CT Chest negative for pneumonia * Afebrile, no elevated white count 4) HTN * c/w Amlodipine Besylate (Norvasc) 10 mg PO DAILY CYNTHIA * c/w Chlorthalidone (Hygroton) 25 mg PO DAILY CYNTHIA * c/w Potassium Chloride Oral Soln) 20 meq PO DAILY CYNTHIA * Has a prior Echo earlier this year 5) Hx of Gastritis * c/w Dicyclomine HCl (Bentyl) 20 mg PO DAILY CYNTHIA * c/w Famotidine (Pepcid) 20 mg PO BID CYNTHIA 6)Hx of Asthma * Patient to continue home medications upon discharge 7) Prophylaxis * No SCDs, prior hx of DVT, current superficial clot on LE Duplex * Heart healthy diet * Heparin 5,000 units SC Q8 CYNTHIA * Famotidine (Pepcid) 20 mg PO BID CYNTHIA
[2017-09-29 15:48] VITALS: BP 117/70; PULSE 94; RESP 18; TEMP 98.5
[2017-09-30] MEDS ORDERED: Influenza Vaccine 60 mcg/0.5 mL SYR (4YR UP) IM ONE (10:00)
--- NOTE | 2017-09-30 10:49 | VASCLAB ---
PROCEDURE: Lower Extremity Venous Duplex Exam. HISTORY: leg pain h/o of dvt PRIORS: None. TECHNIQUE: Bilateral common femoral, femoral, popliteal and posterior tibial, peroneal and great saphenous veins were evaluated. Flow was assessed with color Doppler, compressibility, assessment of phasic flow and augmentation response. Report prepared by Orlando Garcia, SHANE, RVT FINDINGS: RIGHT: 1. Common Femoral Vein: 1.1. Compressibility - Fully compressible: Thrombus - None : Flow - Phasic: Augmentation -Normal: Reflux - None. 2. Femoral Vein: 2.1. Compressibility - Fully compressible: Thrombus - None : Flow - Phasic: Augmentation -Normal: Reflux - None. 3. Popliteal Vein: 3.1. Compressibility - Fully compressible: Thrombus - None : Flow - Phasic: Augmentation -Normal: Reflux - None. 4. Posterior Tibial Vein: 4.1. Compressibility - Fully compressible: Thrombus - None: Flow - Phasic: Augmentation -Normal: Reflux - None. 5. Peroneal Vein: 5.1. Compressibility - Fully compressible: Thrombus - None: Flow - Phasic: Augmentation -Normal: Reflux - Severe. 6. Great Saphenous Vein: 6.1. Compressibility - Fully compressible: Thrombus - None: Flow - Phasic: Augmentation - Normal: Reflux - None. LEFT: 1. Common Femoral Vein: 1.1. Compressibility - Fully compressible: Thrombus - None: Flow - Phasic: Augmentation -Normal: Reflux - None. 2. Femoral Vein: 2.1. Compressibility - Fully compressible: Thrombus - None: Flow - Phasic: Augmentation -Normal: Reflux - None. 3. Popliteal Vein: 3.1. Compressibility - Fully compressible: Thrombus - None : Flow - Phasic: Augmentation -Normal: Reflux - None. 4. Posterior Tibial Vein: 4.1. Compressibility - Fully compressible: Thrombus - None: Flow - Phasic: Augmentation -Normal: Reflux - None. 5. Peroneal Vein: 5.1. Compressibility - Fully compressible: Thrombus - None: Flow - Phasic: Augmentation -Normal: Reflux - None. 6. Great Saphenous Vein: 6.1. Compressibility - Fully compressible: Thrombus - None: Flow - Phasic: Augmentation - Normal: Reflux - None. OTHER FINDINGS: Right: Severe valvular incompetence of the right peroneal vein. Left: Severe valvular incompetence of the left peroneal vein. IMPRESSION: Right: No evidence of deep or superficial vein thrombosis of the right lower extremity. Left: Acute thrombosis of the left greater saphenous vein with severe reduction of the venous return. No evidence of deep vein thrombosis of the left lower extremity.
== END 2017-09-29 14:52 | disposition home or self-care (01) ==
LOC: C.ER 12:53 → C.9E 16:18 → C.6T 18:16
PROVIDERS: ADMIT Hospitalist; ATTEND Hospitalist
DX: M94.0 Chondrocostal junction syndrome [Tietze] (principal); J06.9 Acute upper respiratory infection, unspecified; I82.812 Embolism and thrombosis of superficial veins of left lower extremity; J40 Bronchitis, not specified as acute or chronic; I11.9 Hypertensive heart disease without heart failure; I51.7 Cardiomegaly; J45.909 Unspecified asthma, uncomplicated; K21.9 Gastro-esophageal reflux disease without esophagitis; G47.30 Sleep apnea, unspecified; E78.00 Pure hypercholesterolemia, unspecified; Z79.51 Long term (current) use of inhaled steroids; Z79.82 Long term (current) use of aspirin; Z86.711 Personal history of pulmonary embolism; Z86.718 Personal history of other venous thrombosis and embolism; Z87.01 Personal history of pneumonia (recurrent)
CPT/HCPCS: 36415; 71010; 71275; 80053; 80061; 81001; 83036; 83735; 83880; 84100; 84439; 84443; 84484; 85025; 85378; 85610; 85730; 86738; 87070; 87430; 87804; 93970; 94640; 96374; 99285; G0378; J1644; J1885; Q9967

== ENCOUNTER 2017-12-06 16:53 | Emergency (ER) | payer MEDICARE ==
[2017-12-06 17:27] VITALS: BMI 31.1
[2017-12-06 17:29] VITALS: RESP 18
[2017-12-06 17:38] VITALS: O2SAT 97
--- NOTE | 2017-12-06 18:19 | C.PDOC ---
History Of Present Illness 62 yr old male w/ PMHx of asthma come in for evaluation of fever, bodyaches, dry cough gradualy developed since yesterday. Pt reports pain is mostly over lower back area Otherwise, pt denies severe headache, dizziness, drooling, dysphagia, dyspnea, SOB, wheezing, abd. pain, diarrhea, change in appetite, food intolerance, UTI sx. Ambulate to Ed for evaluation, not in any apparent distress. Time Seen by Provider: 12/06/17 18:10 Chief Complaint (Nursing): High Blood Pressure History Per: Patient History/Exam Limitations: no limitations Onset/Duration Of Symptoms: Sudden Onset (today) Past Medical History Vital Signs: Last Vital Signs Temp 99.1 F 12/06/17 20:09 Pulse 88 12/06/17 20:09 Resp 18 12/06/17 20:09 BP 118/70 12/06/17 20:09 Pulse Ox 97 12/06/17 20:09 - Medical History PMH: Arthritis, Asthma, Bronchitis, Deep Vein Thrombosis (Left Leg), Gastritis, HTN, Hypercholesterolemia, Peripheral Edema, Pneumonia, Pulmonary Embolism, Sleep Apnea (USE CPAP) Denies: Chronic Kidney Disease Surgical History: Endoscopy - [facility] Procedures INFLUENZA VACCINATION (12/05/14) OTHER ENDOSCOPY OF SM INTEST (08/06/15) PLICATION OF VENA CAVA (12/05/14) Family History: States: Unknown Family Hx - Social History Hx Tobacco Use: No Hx Alcohol Use: No Hx Substance Use: No - Immunization History Hx Tetanus Toxoid Vaccination: No Hx Influenza Vaccination: No Hx Pneumococcal Vaccination: No Physical Exam - Physical Exam Appears: Well, Non-toxic, No Acute Distress Skin: Normal Color, Warm, Dry, No Rash Head: Normacephalic Eye(s): bilateral: PERRL Ear(s): Bilateral: Normal Nose: No Flaring, Discharge (scant clear B/L with congestion) Oral Mucosa: Moist, No Drooling Tongue: Normal Appearing Lips: Normal Appearing Throat: No Drooling Neck: Trachea Midline, Supple Cardiovascular: Rhythm Regular, No Murmur, No JVD Respiratory: No Decreased Breath Sounds, No Accessory Muscle Use, No Stridor, No Wheezing Gastrointestinal/Abdominal: Soft, No Tenderness, No Distention, No Guarding Back: No CVA Tenderness Extremity: Normal ROM, No Pedal Edema, No Deformity Neurological/Psych: Oriented x3, Normal Speech ED Course And Treatment O2 Sat by Pulse Oximetry: 97 Pulse Ox Interpretation: Normal - Radiology CXR: Interpreted by Me, Viewed By Me CXR Interpretation: Yes: No Acute Disease Progress Note: On re-evaluation, pt is afebrile, hemodynamicaly stable. Non- toxic. Tolerate Po well in Ed. PusleOx 97% RA. Neck: Supple, (-) meningeal sign, (-) JVD. ENT: no acute findings. Lungs: CTA B/L, BS equal B/L. CVS: (+) S1S2, reg. Abd: enign, (-) guarding, (-) rebound. back: (-) CVA tenderness. CXR review and appears normal. Pt has clinical findings c/w Influenza-lie illness, hx of asthma. Pt advised. ref. to f/u with PMD in 2-3 days for re- eval. return to ED if any worsening or new changes. Disposition Counseled Patient/Family Regarding: Studies Performed, Diagnosis, Need For Followup, Rx Given - Disposition Referrals: [facility] [Outside] Disposition: HOME/ ROUTINE Disposition Time: 19:19 Condition: STABLE Additional Instructions: ENCOURAGE FLUIDS TAKE MEDICATION PRESCRIBED FOLLOW UP WITH PMD IN 1-2 DAYS FOR RE-EVALUATION. RETURN TO ED IF ANY WORSENING OR NEW CHANGES. Prescriptions: Azithromycin [Zithromax] 250 mg PO DAILY #4 tab Benzonatate [Tessalon Perle] 100 mg PO TID #14 capsule Oseltamivir Phosphate [Tamiflu] 75 mg PO BID #10 capsule Prednisone [Deltasone] 20 mg PO DAILY #3 tablet Instructions: Influenza (ED) Forms: [employer] (Beninese) Print Language: AMHARIC - Clinical Impression Clinical Impression: Influenza
[2017-12-06] MEDS ORDERED: Albuterol 0.083% Inhal Sol (2.5 mg/3 mL) UD IH STA (19:07)
[2017-12-06] MEDS ORDERED: Albuterol 0.083% Inhal Sol (2.5 mg/3 mL) UD ONE (19:22)
[2017-12-06 20:09] VITALS: BP 118/70; PULSE 88; TEMP 99.1
--- NOTE | 2017-12-07 09:26 | RAD ---
HISTORY: Cough COMPARISON: Chest radiograph dated 09/28/2017 TECHNIQUE: Chest PA and lateral FINDINGS: LUNGS: No active pulmonary disease. PLEURA: No significant pleural effusion identified. No pneumothorax apparent. CARDIOVASCULAR: Right aortic arch. Cardiomediastinal silhouette otherwise within normal limits. OSSEOUS STRUCTURES: No significant abnormalities. VISUALIZED UPPER ABDOMEN: Normal. OTHER FINDINGS: None. IMPRESSION: No active disease.
== END 2017-12-06 21:01 | disposition home or self-care (01) ==
LOC: C.ER 16:53
DX: J11.1 Influenza due to unidentified influenza virus with other respiratory manifestations (principal)

== ENCOUNTER 2018-08-25 13:59 | Emergency (ER) | payer MEDICARE ==
[2018-08-25 13:59] VITALS: BMI 30.1
--- NOTE | 2018-08-25 14:42 | C.PDOC ---
History Of Present Illness 63 y/o male with history of DVT sent to ED by PMD with complaints of "My blood is high". Patient states he is on Coumadin and went for blood work yesterday, was called today with results. Patient admits to swelling on bilateral lower legs and denies chest pain, sob, fever, chills or any other complaints at this time. Denies any bleeding. Time Seen by Provider: 08/25/18 14:31 Chief Complaint (Nursing): Abnormal Labs History Per: Patient History/Exam Limitations: no limitations Onset/Duration Of Symptoms: Days Current Symptoms Are (Timing): Still Present Past Medical History Reviewed: Historical Data, Nursing Documentation, Vital Signs Vital Signs: Last Vital Signs Temp 98.3 F 08/25/18 14:12 Pulse 60 08/25/18 14:12 Resp 20 08/25/18 14:12 BP 142/92 H 08/25/18 14:12 Pulse Ox 96 08/25/18 14:12 - Medical History PMH: Arthritis, Asthma, Bronchitis, Deep Vein Thrombosis (Left Leg), Gastritis, HTN, Hypercholesterolemia, Peripheral Edema, Pneumonia, Pulmonary Embolism, Sleep Apnea (USE CPAP) Surgical History: Endoscopy - [facility] Procedures INFLUENZA VACCINATION (12/05/14) OTHER ENDOSCOPY OF SM INTEST (08/06/15) PLICATION OF VENA CAVA (12/05/14) Family History: States: No Known Family Hx - Social History Hx Tobacco Use: No Hx Alcohol Use: No Hx Substance Use: No - Immunization History Hx Tetanus Toxoid Vaccination: No Hx Influenza Vaccination: No Hx Pneumococcal Vaccination: No Review Of Systems Cardiovascular: Negative for: Chest Pain Respiratory: Negative for: Shortness of Breath Musculoskeletal: Positive for: Leg Pain (swelling) Skin: Negative for: Rash Neurological: Negative for: Weakness, Numbness Physical Exam - Physical Exam Additional Physical Exam Comments: Constitutional: No acute distress. Head: Normocephalic. Atraumatic. Eyes: PERRL. ENT: Moist mucous membranes. Neck: Supple. Cardiovascular: Regular rate. Radial pulse 2+ bilaterally. Chest: No tenderness. Respiratory: Clear to auscultation bilaterally. GI: Soft. Nontender. Nondistended. Back: No CVA tenderness. Musculoskeletal: Bilateral pedal edema Skin: No rash. Neurologic: Alert, no focal deficit. ED Course And Treatment - Laboratory Results Result Diagrams: 08/25/18 14:45 08/25/18 14:45 O2 Sat by Pulse Oximetry: 96 (RA) Pulse Ox Interpretation: Normal Medical Decision Making Medical Decision Making: Discussed case with primary physician who called patient to come to ED today who agrees with vitamin K orally now and discharge to follow up with their office. Disposition - Disposition Disposition: HOME/ ROUTINE Disposition Time: 15:26 Condition: STABLE Additional Instructions: Go see your doctor to repeat monitoring of your Coumadin level. Skip your next 1-2 doses of Coumadin. Instructions: Warfarin Forms: [employer] (Mohawk) - Clinical Impression Clinical Impression: Warfarin-induced coagulopathy - Scribe Statement The provider has reviewed the documentation as recorded by the Jacobibbeatriz Lees All medical record entries made by the Albino were at my direction and personally dictated by me. I have reviewed the chart and agree that the record accurately reflects my personal performance of the history, physical exam, medical decision making, and the department course for this patient. I have also personally directed, reviewed, and agree with the discharge instructions and disposition.
[2018-08-25 14:49] LABS: BASO # 0.1 K/uL (0.0-0.2); BASO % 0.9 % (0.0-2.0); EOS # 0.7 K/uL (0.0-0.7); EOS % 9.6 % (0.0-4.0); HEMOGLOBIN 12.3 g/dL (12.0-18.0); LYMPH # 1.4 K/uL (1.0-4.3); MEAN CORPUSCULAR HEMOGLOBIN 29.6 pg (27.0-31.0); MEAN PLATELET VOLUME 8.3 fL (7.2-11.7); MONO # 0.3 K/uL (0.0-0.8); MONO % 4.6 % (0.0-10.0); NEUT # 4.4 K/uL (1.8-7.0); NEUT % 63.9 % (50.0-75.0); RBC 4.16 Mil/uL (4.40-5.90); RED CELL DISTRIBUTION WIDTH 13.7 % (11.5-14.5); WHITE BLOOD COUNT 6.8 K/uL (4.8-10.8)
[2018-08-25 14:59] LABS: PROTHROMBIN TIME 84.1 SECONDS (9.7-12.2)
[2018-08-25 15:04] LABS: ALB/GLOB RATIO 1.2 (1.0-2.1); ALT/SGPT 37 U/L (21-72); AST/SGOT 21 U/L (17-59); BLOOD UREA NITROGEN 13 mg/dL (9-20); CALCIUM 9.1 mg/dl (8.6-10.4); GFR NON-AFRICAN AMERICAN > 60
[2018-08-25 15:07] LABS: INR 7.7
[2018-08-25] MEDS ORDERED: Phytonadione 2.5 MG/0.5 TAB TAB PO STA ×2 (15:21→15:36)
[2018-08-25 15:34] VITALS: BP 119/80; PULSE 64; RESP 12; TEMP 98.1; O2SAT 98
== END 2018-08-25 15:50 | disposition home or self-care (01) ==
LOC: C.ER 13:59
DX: D68.32 Hemorrhagic disorder due to extrinsic circulating anticoagulants (principal); T45.515A Adverse effect of anticoagulants, initial encounter; Y92.9 Unspecified place or not applicable

== ENCOUNTER 2018-09-19 10:42 | Emergency (ER) | payer MEDICARE ==
[2018-09-19 10:43] VITALS: BMI 30.1
[2018-09-19] MEDS ORDERED: Iohexol 240 (50 ml) PO STA (13:08)
[2018-09-19] MEDS ORDERED: Sodium Chloride 0.9% 1,000 ML IV ONE (13:54)
--- NOTE | 2018-09-19 13:59 | RAD ---
Date of service: 09/19/2018 PROCEDURE: CHEST RADIOGRAPH, 1 VIEW HISTORY: abd pain COMPARISON: 12/06/2017 FINDINGS: LUNGS: Clear. PLEURA: Stable interstitial lung disease CARDIOVASCULAR: Atherosclerotic calcifications identified primarily aortic arch. Right-sided aortic arch. OSSEOUS STRUCTURES: No significant abnormalities. VISUALIZED UPPER ABDOMEN: Normal. OTHER FINDINGS: None. IMPRESSION: No active disease. No acute/significant interval changes.
--- NOTE | 2018-09-19 14:07 | C.PDOC ---
History Of Present Illness 63-year-old male, presents to the emergency department with complaints of diffuse abdominal pain since last night. Patient reports pain is associated with nausea and vomiting. He states that he noticed his abdomen is more bloated tod ay. He denies diarrhea, GI bleed, fever, or any other associated symptoms. No other complaints at this time. Time Seen by Provider: 09/19/18 12:04 Chief Complaint (Nursing): Abdominal Pain Past Medical History Vital Signs: Last Vital Signs Temp 97.5 F L 09/19/18 11:04 Pulse 59 L 09/19/18 11:04 Resp 20 09/19/18 11:04 BP 118/70 09/19/18 11:04 Pulse Ox 100 09/19/18 11:04 - Medical History PMH: Arthritis, Asthma, Bronchitis, Deep Vein Thrombosis (Left Leg), Gastritis, HTN, Hypercholesterolemia, Peripheral Edema, Pneumonia, Pulmonary Embolism, Sleep Apnea (USE CPAP) Denies: Chronic Kidney Disease Surgical History: Endoscopy - [facility] Procedures INFLUENZA VACCINATION (12/05/14) OTHER ENDOSCOPY OF SM INTEST (08/06/15) PLICATION OF VENA CAVA (12/05/14) Family History: States: Unknown Family Hx - Social History Hx Tobacco Use: No Hx Alcohol Use: No Hx Substance Use: No - Immunization History Hx Tetanus Toxoid Vaccination: Yes Hx Influenza Vaccination: No Hx Pneumococcal Vaccination: Yes Review Of Systems Constitutional: Negative for: Fever Gastrointestinal: Positive for: Nausea, Vomiting, Abdominal Pain. Negative for: Diarrhea Physical Exam - Physical Exam Appears: Non-toxic, No Acute Distress Skin: Warm, Dry, No Rash Head: Atraumatic Eye(s): bilateral: Normal Inspection, PERRL, EOMI Nose: Normal Oral Mucosa: Moist Lips: Normal Appearing Neck: Normal ROM Cardiovascular: Rhythm Regular, No Murmur Respiratory: Normal Breath Sounds, No Accessory Muscle Use Gastrointestinal/Abdominal: Soft, Tenderness (mild, diffuse), Distention (mild), No Guarding, No Rebound Back: Normal Inspection Extremity: Normal ROM, No Deformity Neurological/Psych: Oriented x3, Normal Speech ED Course And Treatment - Laboratory Results Result Diagrams: 09/19/18 14:57 09/19/18 14:57 O2 Sat by Pulse Oximetry: 100 (on RA) Pulse Ox Interpretation: Normal Medical Decision Making Medical Decision Making: CT scan ordered which revealed possible colitis/enteritis. On re-exam, the patient reports improvement of symptoms. Lungs are CTA, heart is RRR, abdomen is soft, non-tender and the patient is tolerating PO well. Ambulatory in the ED with steady gait. Follow up with the medical doctor within 1-2 days without fail. Return if worsened. Disposition - Disposition Referrals: Finesse Christopher MD [Medical Doctor] - Disposition: HOME/ ROUTINE Disposition Time: 17:24 Condition: IMPROVED Additional Instructions: Follow up with the medical doctor within 1-2 days without fail. Return if worsened. Prescriptions: Ciprofloxacin [Cipro] 1 tab PO BID #14 tab metroNIDAZOLE [Flagyl] 500 mg PO BID #14 tab Instructions: Viral Gastroenteritis, Adult (DC) Forms: [employer] (Hebrew) - Clinical Impression Clinical Impression: Colitis - Scribe Statement The provider has reviewed the documentation as recorded by the Scribe (Nikky Hollingsworth) All medical record entries made by the Scribe were at my direction and pe rsonally dictated by me. I have reviewed the chart and agree that the record accurately reflects my personal performance of the history, physical exam, medical decision making, and the department course for this patient. I have also personally directed, reviewed, and agree with the discharge instructions and disposition.
[2018-09-19] MEDS ORDERED: Iohexol 240 (50 ml) ONE (14:18)
[2018-09-19 15:02] LABS: BASO % 0.4 % (0.0-2.0); EOS # 0.6 K/uL (0.0-0.7); EOS % 6.9 % (0.0-4.0); HEMOGLOBIN 13.6 g/dL (12.0-18.0); LYMPH # 1.4 K/uL (1.0-4.3); MEAN CELL VOLUME 88.5 fL (80.0-94.0); MEAN CORPUSCULAR HEMOGLOBIN 30.4 pg (27.0-31.0); MEAN CORPUSCULAR HGB CONC 34.3 g/dL (33.0-37.0); MEAN PLATELET VOLUME 8.2 fL (7.2-11.7); MONO # 0.4 K/uL (0.0-0.8); MONO % 5.3 % (0.0-10.0); NEUT # 5.7 K/uL (1.8-7.0); NEUT % 70.4 % (50.0-75.0); RBC 4.46 Mil/uL (4.40-5.90); RED CELL DISTRIBUTION WIDTH 13.9 % (11.5-14.5)
[2018-09-19 15:17] LABS: ALB/GLOB RATIO 1.2 (1.0-2.1); ALBUMIN 4.5 g/dL (3.5-5.0); ALT/SGPT 27 U/L (21-72); AST/SGOT 20 U/L (17-59); BLOOD UREA NITROGEN 11 mg/dL (9-20); CALCIUM 9.5 mg/dl (8.6-10.4); GFR NON-AFRICAN AMERICAN > 60; LIPASE 62 U/L (23-300)
[2018-09-19 15:41] VITALS: RESP 18
--- NOTE | 2018-09-19 17:23 | CT ---
Date of service: 09/19/2018. PROCEDURE: CT Abdomen and Pelvis. HISTORY: Diffuse pain, vomiting, abd distention COMPARISON: Comparison made with prior CT scan abdomen pelvis 03/18/2017.. Correlation also made with CTA of the chest dated 09/28/2017 TECHNIQUE: Contiguous helical/transaxial sections of the abdomen pelvis performed following oral and intravenous injection of approximately 100 cc Visipaque 320 contrast material. Additional 2D sagittal and coronal reformats generated. Radiation dose: Total exam DLP = 749.62 mGy-cm. This CT exam was performed using one or more of the following dose reduction techniques: Automated exposure control, adjustment of the mA and/or kV according to patient size, and/or use of iterative reconstruction technique. FINDINGS: LOWER THORAX: Heart size is borderline/mildly enlarged. No significant pericardial effusion. There is a small hiatal hernia with slight wall thickening of the distal esophagus likely due to protrusion gastric mucosa. Esophagitis not excluded. Again noted is a right-sided aortic arch mild atelectasis and/or scarring changes seen in the right lung base and middle lobe region as well as left lung base/lingular region. No effusion or basilar pneumothorax. LIVER: The liver exhibits normal size and attenuation pattern. No evidence of obvious hepatic mass collection or calcification. Portal and splenic veins are opacified. GALLBLADDER AND BILE DUCTS: Gallbladder physiologically distended. No evidence of intraluminal gallbladder calculi. PANCREAS: Pancreas appears slightly atrophic and fatty replaced. SPLEEN: The spleen exhibits normal size and attenuation pattern without mass collection or calcification. ADRENALS: There are no adrenal masses. KIDNEYS AND URETERS: Again noted are a few tiny low-attenuation foci of low attenuation both kidneys statistically likely representing small cysts. The VASCULATURE: Unremarkable. No aortic aneurysm. Minor aortic atherosclerotic calcification or mural plaque present. In situ IVC filter. BOWEL: Evaluation of the bowel is somewhat limited due to incomplete opacification. The stomach is distended with of the wall of the pylorus and possibly the duodenum. Findings may be secondary to peristalsis however possibility of a localized gastritis and/or duodenitis not exclude. Clinical correlation recommended.. The visualized loops of small bowel otherwise exhibit normal contour and caliber. No evidence of acute mechanical small bowel obstruction. There is wall thickening of the transverse and portions of the ascending as well as descending colon consistent with the diffuse nonspecific colitis. Clinical correlation recommended. APPENDIX: Normal-appearing appendix. PERITONEUM: Unremarkable. No free fluid. No free air. There is a small fat containing umbilical hernia. LYMPH NODES: Unremarkable. No enlarged lymph nodes. BLADDER: Urinary bladder is incompletely distended which in part accounts for thick-walled appearance. Muscular hypertrophy presumably contributes however the possibility of a cystitis not excluded. Clinical correlation with urinalysis. REPRODUCTIVE: Prostate gland measures approximately 4.1 cm in transverse dimension. BONES: Mild multilevel degenerative spondylosis of the of the lower thoracic and lumbar spine.. No acute compression fractures no retropulsed fragments. OTHER FINDINGS: None. IMPRESSION: Findings consistent with a nonspecific colitis. Slight wall thickening of the pylorus and proximal duodenum likely due to peristalsis however possibility of distal gastritis and/or duodenitis not excluded. Clinical correlation recommended. In situ IVC filter. Urinary bladder wall thickening likely due to incomplete distention and muscular hypertrophy however correlation with urinalysis recommended to exclude cystitis. Few tiny foci low-attenuation both kidneys likely representing renal cysts.
[2018-09-19 17:52] VITALS: BP 116/79; PULSE 78; TEMP 98
[2018-09-19 18:57] VITALS: O2SAT 100
== END 2018-09-19 17:52 | disposition home or self-care (01) ==
LOC: C.ER 10:42
DX: K52.9 Noninfective gastroenteritis and colitis, unspecified (principal)
CPT/HCPCS: 71045; 74177; 80053; 83690; 85025; 96361; 96374; 96375; 99285; J1885; J2405; J7030; Q9966

== ENCOUNTER 2018-11-27 08:48 | Outpatient (CLI) | payer MEDICARE | END 2018-11-27 08:49 | disposition home or self-care (01) | LOC: C.CTH 08:48 ==

== ENCOUNTER 2019-01-13 13:39 | Emergency (ER) | payer MEDICARE ==
[2019-01-13 13:40] VITALS: BMI 30.1
[2019-01-13 13:55] VITALS: RESP 18
--- NOTE | 2019-01-13 14:44 | C.PDOC ---
History Of Present Illness 63 y/o male pt presents to the ER c/o non-productive cough for x2 weeks. Pt denies fever, chills, nausea, vomiting, SOB, chest pain. Pt notes he has an inhaler for asthma and uses it, but denies wheezing. Pt has no other complaints or associated sx at this time. Time Seen by Provider: 01/13/19 13:50 Chief Complaint (Nursing): Cough, Cold, Congestion History Per: Patient History/Exam Limitations: no limitations Onset/Duration Of Symptoms: Days (x2 weeks) Current Symptoms Are (Timing): Still Present Past Medical History Reviewed: Historical Data, Nursing Documentation, Vital Signs Vital Signs: Last Vital Signs Temp 98.6 F 01/13/19 13:55 Pulse 71 01/13/19 13:55 Resp 18 01/13/19 13:55 BP 93/56 L 01/13/19 13:55 Pulse Ox 98 01/13/19 13:55 - Medical History PMH: Arthritis, Asthma, Bronchitis, Deep Vein Thrombosis (Left Leg), Gastritis, HTN, Hypercholesterolemia, Peripheral Edema, Pneumonia, Pulmonary Embolism, Sleep Apnea (USE CPAP) Surgical History: Endoscopy - [facility] Procedures INFLUENZA VACCINATION (12/05/14) OTHER ENDOSCOPY OF SM INTEST (08/06/15) PLICATION OF VENA CAVA (12/05/14) Family History: States: Unknown Family Hx - Social History Hx Tobacco Use: No Hx Alcohol Use: No Hx Substance Use: No - Immunization History Hx Tetanus Toxoid Vaccination: Yes Hx Influenza Vaccination: No Hx Pneumococcal Vaccination: Yes Review Of Systems Except As Marked, All Systems Reviewed And Found Negative. Constitutional: Negative for: Fever, Chills Cardiovascular: Negative for: Chest Pain Respiratory: Positive for: Cough. Negative for: Shortness of Breath, Wheezing Gastrointestinal: Negative for: Nausea, Vomiting Physical Exam - Physical Exam Appears: Well, Non-toxic, No Acute Distress Skin: Warm, Dry, No Rash Head: Atraumatic, Normacephalic Eye(s): bilateral: PERRL, EOMI, Other (conjunctiva clear ) Oral Mucosa: Moist Throat: Normal, No Erythema, No Exudate Chest: Symmetrical Cardiovascular: Rhythm Regular, No Murmur, Other (normal S1, S2) Respiratory: No Rales, Rhonchi (faint ), No Stridor, No Wheezing, Other (good air movement ) Gastrointestinal/Abdominal: Soft, No Tenderness Extremity: Normal ROM (x2) Neurological/Psych: Oriented x3 ED Course And Treatment O2 Sat by Pulse Oximetry: 98 (RA) Pulse Ox Interpretation: Normal - Radiology CXR: Interpreted by Me, Viewed By Me CXR Interpretation: Yes: No Acute Disease Medical Decision Making Medical Decision Making: Plans: -- CXR Disposition Counseled Patient/Family Regarding: Studies Performed, Diagnosis, Need For Followup - Disposition Referrals: Finesse Christopher MD [Medical Doctor] - Disposition: HOME/ ROUTINE Disposition Time: 15:23 Condition: STABLE Additional Instructions: MIROSLAVA REDDING, thank you for letting us take care of you today. Your provider was Delphine Lay MD and you were treated for COUGH. The emergency medical care you received today was directed at your acute symptoms. If you were prescribed any medication, please fill it and take as directed. It may take several days for your symptoms to resolve. Return to the Emergency Department if your symptoms worsen, do not improve, or if you have any other problems. Please contact your doctor in 2 days for a follow up visit. Bring any paperwork you were given at discharge with you along with any medications you are taking to your follow up visit. Our treatment cannot replace ongoing medical care by a primary care provider outside of the emergency department. Thank you for allowing the [facility] team to be part of your care today. If you had an X-Ray or CT scan: A Radiologist will review the ED reading if any change in treatment is needed we will contact you. If you had a blood, urine, or wound culture: It will take several days for the results, if any change in treatment is needed we will contact you. If you had an STI test: It will take 48 hours for the results. Please call after 1 week if you have not heard back. Prescriptions: Benzonatate [Tessalon Perles] 100 mg PO TID #30 sgl Instructions: Upper Respiratory Infection (ED) Forms: [employer] (Bruneian), General Discharge Instructions - POA Present On Arrival: None - Clinical Impression Clinical Impression: Upper respiratory infection - Scribe Statement The provider has reviewed the documentation as recorded by the Scribe Ramos Do Provider Attestation: All medical record entries made by the Scribe were at my direction and personally dictated by me. I have reviewed the chart and agree that the record accurately reflects my personal performance of the history, physical exam, medical decision making, and the department course for this patient. I have also personally directed, reviewed, and agree with the discharge instructions and disposition.
[2019-01-13 15:28] VITALS: BP 106/62; PULSE 72; TEMP 98.5; O2SAT 99
--- NOTE | 2019-01-13 15:57 | RAD ---
Date of service: 01/13/2019 HISTORY: cough COMPARISON: Comparison is made to the previous study dated 09/19/2018 TECHNIQUE: Chest PA and lateral FINDINGS: LUNGS: No evidence of new infiltrate or consolidation in the lungs. PLEURA: No significant pleural effusion identified. No pneumothorax apparent. CARDIOVASCULAR: No aortic atherosclerotic calcification present. Normal cardiac size. No pulmonary vascular congestion. OSSEOUS STRUCTURES: No significant abnormalities. VISUALIZED UPPER ABDOMEN: Normal. OTHER FINDINGS: None. IMPRESSION: No active disease.
== END 2019-01-13 15:32 | disposition home or self-care (01) ==
LOC: C.ER 13:39
DX: J06.9 Acute upper respiratory infection, unspecified (principal)

== ENCOUNTER 2019-02-02 08:31 | Outpatient (CLI) | payer MEDICARE | END 2019-02-02 08:32 | disposition home or self-care (01) | LOC: C.LAB 08:31 | DX: N40.0 Benign prostatic hyperplasia without lower urinary tract symptoms (principal) ==

== ENCOUNTER 2019-03-26 08:45 | Emergency (ER) | payer MEDICARE, OTHER ==
[2019-03-26 08:53] VITALS: BMI 32.3
--- NOTE | 2019-03-26 09:49 | C.PDOC ---
History Of Present Illness 63 y/o male, with history of PE and asthma, presents to ED stating that he recently traveled from [place] 6 days ago and for the past 5 days, hes been having cough, associated with wheezing and SOB. Patient states that he is compliant with his medications for PE, takes warfarin everyday. Does admit that theres positive sick contact at home, children are ill with similar symptoms and diagnosed with bronchitis. Time Seen by Provider: 03/26/19 09:09 Chief Complaint (Nursing): Cough, Cold, Congestion History Per: Patient History/Exam Limitations: no limitations Onset/Duration Of Symptoms: Days Current Symptoms Are (Timing): Still Present Past Medical History Reviewed: Historical Data, Nursing Documentation, Vital Signs Vital Signs: Last Vital Signs Temp 98.9 F 03/26/19 08:54 Pulse 92 H 03/26/19 08:54 Resp BP 146/95 H 03/26/19 08:54 Pulse Ox 95 03/26/19 08:54 Primary Care Provider: Maycol Yeboah - Medical History PMH: Arthritis, Asthma, Bronchitis, Deep Vein Thrombosis (Left Leg), Gastritis, HTN, Hypercholesterolemia, Peripheral Edema, Pneumonia, Pulmonary Embolism, Sleep Apnea (USE CPAP) Denies: Chronic Kidney Disease Surgical History: Endoscopy - [facility] Procedures INFLUENZA VACCINATION (12/05/14) OTHER ENDOSCOPY OF SM INTEST (08/06/15) PLICATION OF VENA CAVA (12/05/14) Family History: States: No Known Family Hx - Social History Hx Tobacco Use: No Hx Alcohol Use: No Hx Substance Use: No - Immunization History Hx Tetanus Toxoid Vaccination: Yes Hx Influenza Vaccination: No Hx Pneumococcal Vaccination: Yes Review Of Systems Except As Marked, All Systems Reviewed And Found Negative. Constitutional: Negative for: Fever, Chills, Sweats Cardiovascular: Negative for: Chest Pain Respiratory: Positive for: Cough, Shortness of Breath, Wheezing Gastrointestinal: Negative for: Nausea, Vomiting Neurological: Negative for: Headache, Dizziness Physical Exam - Physical Exam Appears: Non-toxic, No Acute Distress Skin: Warm, Dry, No Pale, No Rash Head: Atraumatic, Normacephalic Eye(s): bilateral: Normal Inspection, PERRL, EOMI Ear(s): Bilateral: Normal Oral Mucosa: Moist Throat: Normal, No Erythema, No Exudate Neck: Normal ROM, Supple Chest: Symmetrical, No Tenderness Cardiovascular: Rhythm Regular, No Friction Rub, No Murmur Respiratory: No Accessory Muscle Use, No Rales, No Rhonchi, Wheezing (moderate wheezing bilaterally), Other (no retractions) Gastrointestinal/Abdominal: Soft, No Tenderness Back: Normal Inspection, No CVA Tenderness Extremity: Normal ROM, No Tenderness, No Swelling Extremity: Bilateral: Atraumatic, Normal ROM Neurological/Psych: Oriented x3, Normal Speech, Normal Motor Gait: Steady ED Course And Treatment - Laboratory Results Result Diagrams: 03/26/19 10:02 03/26/19 10:02 O2 Sat by Pulse Oximetry: 95 (RA) Pulse Ox Interpretation: Normal - Other Rad CXR X-Ray: Read By Radiologist Interpretation: FINDINGS: LUNGS: Bibasilar atelectasis. Please note that chest x-ray has limited sensitivity for the detection of pulmonary masses. PLEURA: No significant pleural effusion identified. No definite pneumothorax . CARDIOVASCULAR: Heart size appears top normal. Ectatic aorta. Right-sided aortic arch. OSSEOUS STRUCTURES: Degenerative changes. VISUALIZED UPPER ABDOMEN: Elevation/eventration of the right hemidiaphragm. OTHER FINDINGS: None. IMPRESSION: Bibasilar atelectasis. Medical Decision Making Medical Decision Making: Plan: --EKG --Labs --Chest XR 12:24 - Patient states he feels better and improved. States he is ready to go home. On re-exam, the patient reports improvement of symptoms. Lungs are CTA, heart is RRR, abdomen is soft, non-tender and tolerating PO well. Follow up with the medical doctor within 1-2 days. Return if worsened. Disposition - Disposition Referrals: Maycol Yeboah [Staff Provider] - Disposition: HOME/ ROUTINE Disposition Time: 12:25 Condition: GOOD Additional Instructions: Follow up with the medical doctor/clinic within 1-2 days. Return if worsened. 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 - Scribe Statement The provider has reviewed the documentation as recorded by the Scribe Sho Mirlees All medical record entries made by the Jacobibbeatriz were at my direction and personally dictated by me. I have reviewed the chart and agree that the record accurately reflects my personal performance of the history, physical exam, medical decision making, and the department course for this patient. I have also personally directed, reviewed, and agree with the discharge instructions and disposition.
[2019-03-26 10:06] LABS: BASO # 0.1 K/uL (0.0-0.2); BASO % 0.7 % (0.0-2.0); EOS # 1.2 K/uL (0.0-0.7); EOS % 17.1 % (0.0-4.0); HEMOGLOBIN 12.8 g/dL (12.0-18.0); LYMPH # 1.7 K/uL (1.0-4.3); LYMPH % 24.5 % (20.0-40.0); MEAN CELL VOLUME 88.6 fL (80.0-94.0); MEAN CORPUSCULAR HEMOGLOBIN 30.4 pg (27.0-31.0); MEAN CORPUSCULAR HGB CONC 34.3 g/dL (33.0-37.0); MEAN PLATELET VOLUME 7.7 fL (7.2-11.7); MONO # 0.6 K/uL (0.0-0.8); MONO % 8.6 % (0.0-10.0); NEUT # 3.4 K/uL (1.8-7.0); NEUT % 49.1 % (50.0-75.0); RBC 4.2 Mil/uL (4.40-5.90); RED CELL DISTRIBUTION WIDTH 13.6 % (11.5-14.5)
[2019-03-26 10:22] LABS: ALBUMIN 4.1 g/dL (3.5-5.0); ALT/SGPT 22 U/L (21-72); AST/SGOT 25 U/L (17-59); BLOOD UREA NITROGEN 15 mg/dL (9-20); CALCIUM 9.2 mg/dl (8.6-10.4); GFR NON-AFRICAN AMERICAN > 60
--- NOTE | 2019-03-26 10:23 | RAD ---
HISTORY: SOB, asthma COMPARISON: Chest x-ray performed 01/13/19 TECHNIQUE: Chest PA and lateral, 2 views FINDINGS: LUNGS: Bibasilar atelectasis. Please note that chest x-ray has limited sensitivity for the detection of pulmonary masses. PLEURA: No significant pleural effusion identified. No definite pneumothorax . CARDIOVASCULAR: Heart size appears top normal. Ectatic aorta. Right-sided aortic arch. OSSEOUS STRUCTURES: Degenerative changes. VISUALIZED UPPER ABDOMEN: Elevation/eventration of the right hemidiaphragm. OTHER FINDINGS: None. IMPRESSION: Bibasilar atelectasis.
[2019-03-26 10:28] LABS: INR 2.6; PARTIAL THROMBOPLASTIN TIME 45.7 SECONDS (21-34); PROTHROMBIN TIME 28.8 SECONDS (9.7-12.2)
[2019-03-26 10:33] LABS: B-TYPE NATRIURETIC PEPTIDE 66.9 pg/mL (0-900)
[2019-03-26] MEDS ORDERED: MethylPREDNISolone 40 mg Vial IVP STA (11:00)
[2019-03-26 11:28] VITALS: RESP 18; TEMP 97.7
[2019-03-26] MEDS ORDERED: Albuterol-Ipratrop 3 mg / 0.5 (3 ml) UD ONE ×2 (11:34→11:50)
[2019-03-26] MEDS: Albuterol-Ipratrop 3 mg / 0.5 (3 ml) UD IH SCH (12:21)
[2019-03-26 12:51] VITALS: BP 152/83; PULSE 64
[2019-03-28 22:35] VITALS: O2SAT 95
== END 2019-03-26 12:51 | disposition home or self-care (01) ==
LOC: C.ER 08:45
DX: J40 Bronchitis, not specified as acute or chronic (principal)
CPT/HCPCS: 71046; 80053; 83880; 84484; 85025; 85610; 85730; 96374; 99284; J2920